=== PATIENT | female | born 1935 | race Caucasian/White ===

== ENCOUNTER → 2023-08-21 | Outpatient (CLI) | payer MEDICARE, BC, SELFPAY | END | disposition home or self-care (01) | LOC: LABSPEC 15:44 | PROVIDERS: PCP Family Medicine; Referring Provider Otolaryngology Otolaryngology/Facial Plastic Surgery; Visit Provider Otolaryngology Otolaryngology/Facial Plastic Surgery | DX: J02.9 Acute pharyngitis, unspecified (principal) | CPT/HCPCS: 87070; 87077; 87186 ==

== ENCOUNTER 2025-03-20 11:31 | Emergency (ER) | payer MEDICARE, BC, SELFPAY ==
[2025-03-20 11:31] VITALS: BP 105/64; PULSE 46; RESP 18; TEMP 36.6; O2SAT 96
--- NOTE | 2025-03-20 11:43 | RAD_ITS ---
PROCEDURE: CHEST PA AND LATERAL 03/20/2025 REASON FOR EXAM: COUGH Weakness and confusion. TECHNIQUE: CHEST PA AND LATERAL COMPARISON: None FINDINGS: Hardware: EKG electrodes are seen. Heart: Cardiomegaly. Mediastinum: The mediastinal contour is unremarkable. Lungs: Hyperinflation. Increased interstitial markings in the right lung. This may represent atypical mild CHF. Follow-up recommended. Bones: Dextroconvex scoliosis. Osteopenia of the thoracic vertebrae with a proximally 50% loss of height of the mid dorsal vertebrae. RAD/Chest PA and Lateral IMPRESSION: Hyperinflation. Increased interstitial markings in the right lung. This may represent atypical CHF. Follow-up recommended. [facility]
--- NOTE | 2025-03-20 11:45 | EDS_ITS ---
HPI <KANA Beltran - Last Filed: 03/20/25 16:03> History of Present Illness Chief Complaint: Weakness Narrative Narrative: 89-year-old female with past medical history of A-fib on Eliquis presents with 5-day history of fatigue and upper respiratory symptoms. She states she had a very congested cough but it was not productive. Her cough is lessened but she still very tired and is sleeping a lot throughout the day. She has had decreased appetite and oral intake. She denies nausea, vomiting, abdominal pain or diarrhea. No chest pain or shortness of breath. No fever or chills. She lives alone and although tired has been able to get up and get dressed and use the restroom etc. She is brought in by her family for evaluation. Her primary care called in cefuroxime over the phone a few days ago but it has not improved her symptoms. [facility] <KANA Beltran - Last Filed: 03/20/25 16:03> [facility] Medical History (Updated 03/20/25 @ 13:24 by Kimberly Evans) Trigeminal neuralgia HTN (hypertension) PAF (paroxysmal atrial fibrillation) Home Medications ?Medication ?Instructions ?Recorded ?Last Taken ?Type apixaban 5 mg tablet (Eliquis) 5 mg PO BID 03/20/25 History cefuroxime axetil 250 mg tablet 250 mg PO BID 03/20/25 03/20/25 History doxycycline hyclate 100 mg tablet 100 mg PO BID 7 days #14 tabs 03/20/25 Unknown Rx furosemide 20 mg tablet 20 mg PO DAILY 03/20/2503/02 History gabapentin 300 mg capsule 300 mg PO Q4H PRN 03/20/25 0 03/20/25 History guaifenesin 600 mg tablet, 1,200 mg PO BID PRN congest ion 03/20/25 03/20/25 History extended release 12 hr (Mucinex) latanoprost 0.005 % eye drops 1 drp ophthalmic (eye) Q HS 03/20/25 03/19/25 History lisinopril 2.5 mg tablet 2.5 mg PO DAILY 03/20/25 History magnesium oxide 400 mg (241.3 mg 400 mg PO DAILY 03/2003/19/25 History magnesium) tablet metoprolol tartrate 25 mg tablet 25 mg PO BID 03/20/25 03/20/25 History spironolactone 25 mg tablet 12.5 mg PO DAILY 03/20/25 03/19/25 History Allergy/AdvReac Type Severity Reaction Status Date / Time codeine Allergy Other Verified 03/20/25 11:33 Sulfa (Sulfonamide Allergy Vomiting Verified 03/20/25 11:33 Antibiotics) Social History Smoking Status: Never smoker ROS <KANA Beltran - Last Filed: 03/20/25 16:03> ROS ED ROS Narrative Constitutional: Positive for malaise. Negative for fever, chills. CVS: Negative for palpitations, chest pain, syncope. Respiratory: Positive for cough. Negative for shortness of breath. GI: Negative for abdominal pain, nausea, vomiting, diarrhea. : Negative for dysuria, hematuria or frequency. EXAM <KANA Beltran - Last Filed: 03/20/25 16:03> Physical Exam Narrative Exam Narrative: CONST: Patient sitting in no acute distress. EYES: Normal inspection. ENT: Normal inspection, dry mucous membranes. NECK: Normal inspection. RESP: No respiratory distress, CTAB. CVS: Irregular rate and rhythm, no murmur, no gallop. ABD: Soft and nontender, no guarding or rebound, nondistended. SKIN: Color normal, no rash, warm, dry, intact. EXTREMITIES: Normal appearance, no pedal edema. NEURO: Alert and answering questions appropriately. PSYCH: Normal affect. Const Vital Signs: 03/20/25 11:31 03/20/25 12:09 03/20/25 12:33 Temperature 97.9 F 97.8 F Temperature Source Oral Oral Pulse Rate 46 L 89 Respiratory Rate 18 18 Respiratory Effort Normal Non-Labored Respiratory Pattern Normal Blood Pressure 105/64 126/62 H Blood Pressure Mean 77 83 Pulse Ox 96 97 Oxygen Delivery Method Room Air Room Air 03/20/25 13:00 Temperature 98.2 F Temperature Source Pulse Rate 82 Respiratory Rate 14 Respiratory Effort Respiratory Pattern Blood Pressure 128/74 H Blood Pressure Mean 92 Pulse Ox 97 Oxygen Delivery Method <Dr. Jrodan Prabhakar MD - Last Filed: 03/20/25 16:13> Physical Exam Const Vital Signs: 03/20/25 11:31 03/20/25 12:09 03/20/25 12:33 Temperature 97.9 F 97.8 F Temperature Source Oral Oral Pulse Rate 46 L 89 Respiratory Rate 18 18 Respiratory Effort Normal Non-Labored Respiratory Pattern Normal Blood Pressure 105/64 126/62 H Blood Pressure Mean 77 83 Pulse Ox 96 97 Oxygen Delivery Method Room Air Room Air 03/20/25 13:00 Temperature 98.2 F Temperature Source Pulse Rate 82 Respiratory Rate 14 Respiratory Effort Respiratory Pattern Blood Pressure 128/74 H Blood Pressure Mean 92 Pulse Ox 97 Oxygen Delivery Method [facility] <KANA Beltran - Last Filed: 03/20/25 16:03> [facility] Narrative Medical decision making narrative: History gathered from: Patient and her family Differential includes but not limited to viral URI, pneumonia, electrolyte luisa angement, SHIRLEY, UTI 89-year-old female presents with 5-day history of fatigue, generalized weakness and upper respiratory symptoms. No chest pain or shortness of breath. She appears well and nontoxic and is afebrile and hemodynamically stable. She has slightly dry mucous membranes with an otherwise benign exam. She is fully alert and oriented. CBC and BMP are unremarkable. UA has signs of possible UTI although does have 5-10 epithelial cells. She has no urinary symptoms and it was sent for culture. Chest x-ray shows increased interstitial markings in the right lung which was read as possible atypical CHF; however, on my review it looks similar to her chest x-ray in 2016. I discussed with the patient the differential includes a viral upper respiratory infection or atypical pneumonia. I prescribed doxycycline and recommended she stop the cefuroxime from primary care. She is comfortable going home and was given return precautions and discharged in stable condition. Lab Data Attestation: I reviewed the patient's lab results. Labs: Laboratory Results - last 24 hr 03/20/25 03/20/25 11:30 12:30 WBC 7.5 RBC 4.26 Hgb 12.8 Hct 38.6 MCV 90.6 MCH 30.0 MCHC 33.2 RDW Std Deviation 47.7 H RDW Coeff of [place] 14.4 Plt Count 185 MPV 9.2 Immature Gran % (Auto) 0.500 Neut % (Auto) 70.9 H Lymph % (Auto) 21.0 [place] % (Auto) 6.7 Eos % (Auto) 0.8 Baso % (Auto) 0.1 Absolute Neuts (auto) 5.3 Absolute Lymphs (auto) 1.57 Nucleated RBC % 0 Sodium 139 Potassium 3.8 Chloride 103 Carbon Dioxide 24.3 Anion Gap 12 BUN 19 Creatinine 0.80 Est GFR (MDRD) Non-Af 71 BUN/Creatinine Ratio 24.0 H Glucose 114 H Calcium 9.2 Urine Color Yellow Urine Clarity Sl. Cloudy Urine pH 6.0 Ur Specific [place] 1.015 Urine Protein 15 H Urine Glucose (UA) Normal Urine Ketones Negative Urine Occult Blood 10 H Urine Nitrite Negative Urine Bilirubin Negative Urine Urobilinogen Normal Ur Leukocyte Esterase 100 H Urine RBC 0-5 SEEN Urine WBC 5-10 SEEN Ur Squamous Epith Cells 5-10 SEEN Urine Bacteria 2+ Urine Mucus 1+ Radiography Diagnostic Testing: Clinical Impression(s) from Imaging Studies Chest X-Ray 03/20/25 11:43 IMPRESSION: Hyperinflation. Increased interstitial markings in the right lung. This may represent atypical CHF. Follow-up recommended. Reading Location: [place] [address] ED attending interpretation of 2 view chest x-ray shows increased right lung markings, looks similar to 2016. EKG Initial EKG: Attestation: I personally reviewed and interpreted this EKG as follows: Interpretation: No Acute Injury Pattern and Atrial Fibrillation Comments: Atrial fibrillation [address] changes <Dr. Jordan Prabhakar MD - Last Filed: 03/20/25 16:13> [facility] Lab Data Labs: Laboratory Results - last 24 hr 03/20/25 03/20/25 11:30 12:30 WBC 7.5 RBC 4.26 Hgb 12.8 Hct 38.6 MCV 90.6 MCH 30.0 MCHC 33.2 RDW Std Deviation 47.7 H RDW Coeff of [place] 14.4 Plt Count 185 MPV 9.2 Immature Gran % (Auto) 0.500 Neut % (Auto) 70.9 H Lymph % (Auto) 21.0 [place] % (Auto) 6.7 Eos % (Auto) 0.8 Baso % (Auto) 0.1 Absolute Neuts (auto) 5.3 Absolute Lymphs (auto) 1.57 Nucleated RBC % 0 Sodium 139 Potassium 3.8 Chloride 103 Carbon Dioxide 24.3 Anion Gap 12 BUN 19 Creatinine 0.80 Est GFR (MDRD) Non-Af 71 BUN/Creatinine Ratio 24.0 H Glucose 114 H Calcium 9.2 Urine Color Yellow Urine Clarity Sl. Cloudy Urine pH 6.0 Ur Specific [place] 1.015 Urine Protein 15 H Urine Glucose (UA) Normal Urine Ketones Negative Urine Occult Blood 10 H Urine Nitrite Negative Urine Bilirubin Negative Urine Urobilinogen Normal Ur Leukocyte Esterase 100 H Urine RBC 0-5 SEEN Urine WBC 5-10 SEEN Ur Squamous Epith Cells 5-10 SEEN Urine Bacteria 2+ Urine Mucus 1+ Radiography Diagnostic Testing: Clinical Impression(s) from Imaging Studies Chest X-Ray 03/20/25 11:43 IMPRESSION: Hyperinflation. Increased interstitial markings in the right lung. This may represent atypical CHF. Follow-up recommended. Reading Location: [place] [address] Treatment and Re-Evaluation Comments:: I have personally performed a face to face assessment of the patient and have reviewed the DANNIE Note. I performed a substantive portion of the visit including all aspects of the following. My church findings include: History is cough and some dyspnea with exertion over the past 4 or 5 days, malaise/fatigue. Has been taking cefuroxime for 3 days with no improvement. Came to the ER because her doctor is no longer available for her to follow-up with, she is getting a new PCP and is in between physicians at this time. Exam is well-appearing in no distress. [place] in full sentences. She did have some Rales that cleared after she coughed, sound a little diminished in the right base afterwards, but otherwise clear. Heart is irregularly irregular without tachycardia. No pedal edema or calf tenderness or signs of cellulitis. Medical Decison Making labs, chest x-ray, EKG obtained. EKG shows chronic A- fib. It is rate controlled. Chest x-ray 2 views of my interpretation shows no acute pneumonia, but some increased interstitial markings in the right base. Radiology in agreement. We are going to change her antibiotic, we offered admission she declines and wants to go home, we discussed reasons to return. Other additions or changes: [None] Discharge Plan Triage Chief Complaint: Weakness ED Midlevel Provider: Erendira Rao ED Provider: Jordan Prabhakar Dx/Rx/DC Orders Clinical Impression: Upper respiratory infection, Acute UTI, Generalized weakness Instructions: Adult Self-Care for Colds Prescriptions: New doxycycline hyclate 100 mg tablet 100 mg PO BID 7 Days Qty: 14 0RF No Action latanoprost 0.005 % drops 1 drp ophthalmic (eye) QHS cefuroxime axetil 250 mg tablet 250 mg PO BID magnesium oxide 400 mg (241.3 mg magnesium) tablet 400 mg PO DAILY gabapentin 300 mg capsule 300 mg PO Q4H PRN furosemide 20 mg tablet 20 mg PO DAILY lisinopril 2.5 mg tablet 2.5 mg PO DAILY metoprolol tartrate 25 mg tablet 25 mg PO BID Eliquis 5 mg tablet 5 mg PO BID spironolactone 25 mg tablet 12.5 mg PO DAILY guaifenesin [Mucinex] 600 mg tablet extended release 12hr 1,200 mg PO BID PRN (Reason: congestion) Primary Care Provider: Britton Bravo Referrals: Reno Winston MD [Non-Staff] - Activity Restrictions/Additional Instructions: You may have a viral upper respiratory infection. However, to cover atypical lung infections I prescribed doxycycline. Stop taking the cefuroxime you have at home and start taking the doxycycline instead. You also have bacteria in your urine which could be a UTI. Rest, drink plenty of fluids, take Tylenol as needed for fever or pain. Follow-up with your primary care doctor or return to the ER if symptoms worsen. Print Language: Romanian Disposition Disposition: Home, Self Care Discharge Date/Time: 03/20/25 13:25
[2025-03-20 12:00] LABS: Absolute Lymphocyte Count 1.57 X10^3/uL (0.83-4.51); Absolute Neutrophil Count 5.3 X10^3/uL (2.0-7.7); Basophil# 0.01 X10^3/uL; Basophil% 0.1 % (0-1); Eosinophil# 0.06 X10^3/uL; Eosinophils% 0.8 % (0-5); Hematocrit 38.6 % (37-47); Hemoglobin 12.8 g/dL (12.0-15.0); Lymphocyte # 1.57 X10^3/ul (0.83-4.51); Mean Corp Hgb Conc 33.2 g/dL (32-36); Mean Corpuscular Volume 90.6 fL (81-99); Mean Platelet Vol. 9.2 fl (6.2-12.0); Monocyte% 6.7 % (0-10); NRBC Flagged by Analyzer 0 % (0-5); Neutrophil # 5.28 X10^3/uL (2.7-7.7); Neutrophil % 70.9 % (47-70); Platelet Count 185 K/mm3 (150-450); RBC Distribution Width CV 14.4 % (11.6-14.6); RBC Distribution Width SD 47.7 fl (35.1-43.9); Red Blood Count 4.26 M/mm3 (4.2-5.4); White Blood Count 7.5 K/mm3 (4.4-11.0)
[2025-03-20] MEDS: 0.9% Normal Saline (1000mL) 1,000 ML 999 ML IV (12:07)
[2025-03-20 12:22] LABS: Anion Gap 12 (5-15); BUN 19 mg/dL (4-19); Calcium,Total 9.2 mg/dL (7.6-11.0); Carbon Dioxide 24.3 mmol/L (21.0-32.0); Chloride 103 mmol/L (98-108); EST Glomerular Filtration Rate 71 (>60); Glucose 114 mg/dL (70-99); Potassium 3.8 mmol/L (3.3-5.1); Sodium Level 139 mmol/L (133-145)
--- NOTE | 2025-03-20 12:32 | EKG12_ITS ---
Test Reason : Blood Pressure : */* mmHG Vent. Rate : 89 BPM Atrial Rate : * BPM P-R Int : * ms QRS Dur : 86 ms QT Int : 348 ms P-R-T Axes : * -24 -63 degrees QTcB Int : 423 ms Atrial fibrillation Low voltage QRS Cannot rule out Anteroseptal infarct , age undetermined Abnormal ECG Confirmed by Sly Lopez ([id number]), web content editor LEATHA OGLESBY ([id number]) on 03/25/2025 11:30:59 AM Referred By: Jordan Prabhakar Confirmed By: Sly Lopez
[2025-03-20 12:33] VITALS: BP 126/62; PULSE 89; RESP 18; TEMP 36.6; O2SAT 97
[2025-03-20 12:38] LABS: Color, Urine Yellow (Yellow); Glucose, Dipstick Normal (Normal); Ketone-Dipstick Negative (Negative); Leukocyte Esterase-Dipstick 100 /ul (Negative); Nitrite-Dipstick Negative (Negative); Occult Blood-Urine 10 /ul (Negative); Protein-Dipstick 15 mg/dl (Negative); Specific Gravity, Urine 1.015 (1.002-1.030); Urine Bilirubin Dipstick Negative (Negative); Urine Clarity Sl. Cloudy (Clear); Urine Urobilinogen Normal (Normal)
[2025-03-20 12:40] VITALS: BMI 22.8
[2025-03-20 12:43] LABS: Bacteria 2+ /hpf (None Seen); Mucous, Urine 1+ /hpf (<or=2+); Red Blood Cells-Urine 0-5 SEEN /hpf (0-5); Squamous Epithelial Cells - UA 5-10 SEEN /hpf (5-10); White Blood Cells 5-10 SEEN /hpf (0-5)
--- OUTSIDE RECORDS SUMMARY | 2025-03-20 12:48 | XMS RPT_ITS | CCD ---
Author Organization [facility] Care Team Providers Care Evp Business Development Name Role Phone TORI, VÍCTOR E Unavailable Unavailable TORI, VÍCTOR E Unavailable Unavailable TORI, VÍCTOR E Unavailable Unavailable RENO BAINS Unavailable Unavailable TORI, VÍCTOR Unavailable Unavailable RENO BAINS Unavailable Unavailable TORI, VÍCTOR Unavailable Unavailable RENO BAINS Unavailable Unavailable TORI, VÍCTOR Unavailable Unavailable TORI, VÍCTOR Unavailable Unavailable RENO BAINS Unavailable Unavailable ROSA ABREU Unavailable Unavailable IMCA Unavailable Unavailable RENO BAINS Unavailable Unavailable Ngoc, [place] S Unavailable Reza Barros MD Unavailable Reza Barros MD Primary Care Provider No, Referral Unavailable Unavailable Luis Barron MD Unavailable Ngoc, Melvin S Unavailable Reza Barros MD Unavailable Reza Barros MD Primary Care Provider Luis Barron MD Unavailable Ngoc, [place] S Unavailable Unavailable Primary Care Provider Unavailabl e Ngoc, Melvin S Unavailable Reza Barros MD Unavailable Reza Barros MD Primary Care Provider No, Referral Unavailable Unavailable Luis Barron MD Unavailable Ngoc, Melvin S Unavailable No, Referral Unavailable Unavailable Ngoc RAHMAN Melvin S Unavailable Barron MD, Luis Unavailable Cedrick Espana Referring Unavailable Cedrick Espana Attending Unavailable Catrachito, Reno Primary Care Unavailable Catrachito, Reno Primary Care Unavailable Latouf, Butros Referring Unavailable Latouf, Butros Attending Unavailable Latouf Reza RAHMAN Primary Care Provider LATOUF, BUTFRANCE MD Admitting Unavailable LATOUF, BUTROS MD Attending Unavailable LATOUF, BUTROS MD Primary Care Unavailable LATOUF, BUTROS MD Admitting Unavailable LATOUF, BUTROS MD Attending Unavailable LATOUF, BUTROS Primary Care Unavailable LATOUF, BUTFRANCE RAHMAN Admitting Unavailable LATOUF, BUTROS Attending Unavailable LATOUF, BUTFRANCE RAHMAN Primary Care Unavailable JOSESITO GARHAM Consulting Unavailable PROVIDER, UNKNOWN Consulting Unavailable PROVIDER, UNKNOWN Consulting Unavailable PROVIDER, UNKNOWN Consulting Unavailable LATOUF, REZA RAHMAN Attending Unavailable LATOUF, BUTFRANCE RAHMAN Primary Care Unavailable SANTOS JOSESITO Zenobia Consulting Unavailable LATOUF, BUTFRANCE RAHMAN Admitting Unavailable PROVIDER, UNKNOWN Consulting Unavailable PROVIDER, UNKNOWN Consulting Unavailable PROVIDER, UNKNOWN Consulting Unavailable LATOUF, BUTROS Primary Care Unavailable LUIS BARRON Attending Unavailable LATOUF, BUTROS Primary Care Unavailable LATOUF, BUTROS Primary Care Unavailable LATOUF, BUTROS Referring Unavailable LATOUF, BUTROS Primary Care Unavailable JOSESITO LORA Attending Unavailable LOW WHITE Referring Unavailable LATOUF, BUTROS Primary Care Unavailable LOW WHITE Referring Unavailable LATOUF, BUTROS Primary Care Unavailable LATOUF, BUTROS Primary Care Unavailable Allergies Allergy Classification Reported Allergen(s) Allergy Type Date of Onset Reaction(s) Facility Opioid Agonists (1 source) Codeine Drug Allergy 4 Other: See Comments [facility] Sulfonamides (antibiotic) (1 source) Sulfonamides (Antibiotic) Drug Allergy 4 Other: See Comments [facility] (20 sources) codeine; Translations: [CODEINE] Drug Allergy 4 Other: See Comments [facility] Repository (20 sources) Sulfonamides (Antibiotic); Translations: [SULFA (SULFONAMIDE ANTIBIOTICS)] Propensity to adverse reactions to drug (disorder) 4 Other: See Comments [facility] Repository (1 source) Sulfonamides (Antibiotic) Drug allergy (disorder) [facility] Repository Medications Current Medications Medication Drug Class(es) Dates Sig (Normalized) Sig (Original) acetaminophen 325 mg oral tablet (19 sources) acetaminophen (TYLENOL ORAL) Take 325 mg by mouth as needed. Active Comment on above: Take 325 mg by mouth as needed. amiodarone hydrochloride 200 mg oral tablet (1 source) Antiarrhythmic Start: 10-27-2015 take 200 mg by mouth once daily Amiodarone Active 200 MG PO DAILY October 27, 2015 12:00am ampicillin 500 mg oral capsule (1 source) Penicillin-class Antibacterial Start: 11-29-2023 End: 12-06-2023 take 1 capsule by mouth three times daily ampicillin (PRINCIPEN) 500 mg capsule Indications: Enterococcus urinary tract infection Take 1 capsule by mouth three times a day for 7 days. 21 capsule 0 11/29/2023 12/06/2023 Active Comment on above: Take 1 capsule by mo [facility] three times a day for 7 days. apixaban 5 mg oral tablet (19 sources) Factor Xa Inhibitor Start: 07-29-2021 take 1 tablet by mouth twice daily apixaban (ELIQUIS) 5 mg tab(s) Take 1 tablet by mouth twice daily. 60 tablet 11 07/29/2021 Active Comment on above: Take 1 tablet by [facility] twice daily. carvedilol 6.25 mg oral tablet (1 source) alpha-Adrenergic Nancy, beta-Adrenergic Nancy Start: 10-27-2015 take 6.25 mg by mouth twice daily Carvedilol Active 6.25 MG PO TWICE A DAY October 27, 2015 12:00am cephalexin 500 mg oral capsule (5 sources) Cephalosporin Antibacterial Start: 06-26-2023 End: 07-03-2023 take 1 capsule by mouth three times daily cephALEXin (KEFLEX) 500 mg capsule Take 1 capsule by mouth three times daily for 7 days. 21 capsule 0 06/26/2023 07/03/2023 Active Start: 12-08-2021 End: 03-30-2022 take 1 capsule by mouth four times daily cephALEXin (KEFLEX) 500 mg capsule Take 1 capsule by mouth four times daily. 28 capsule 0 12/08/2021 03/30/2022 Discontinued Comment on above: Take 1 capsule by mo [facility] four times daily. Take 1 capsule by mo [facility] three times daily for 7 days. ciprofloxacin 500 mg oral tablet (1 source) Quinolone Antimicrobial Start: 01-28-20 End: 02-04-20 take 1 tablet by mouth twice daily ciprofloxacin HCl (CIPRO) 500 mg tablet Take 1 tablet by mouth twice daily for 7 days. 14 tablet 0 01/27/2022 02/03/2022 Active Comment on above: Take 1 tablet by juliet th twice daily for 7 days. furosemide 20 mg oral tablet (19 sources) Loop Diuretic Start: 07-29-20 21 take 1 tablet by mouth once daily furosemide (LASIX) 20 mg tablet Take 1 tablet by mouth once daily. 30 tablet 11 07/29/2021 Active Comment on above: Take 1 tablet by juliet th once daily. gabapentin 300 mg oral capsule (20 sources) Anti-epileptic Agent Start: 01-20-20 End: 01-20-20 23 take 2 capsules by mouth four times daily gabapentin (NEURONTIN) 300 mg capsule Take 2 capsules by mouth four times daily. 240 capsule 11 01/19/2022 Active Start: 10-27-2015 End: 09-09-2016 gabapentin (NEURONTIN) 300 M G capsule Indications: Trigeminal neuralgia TAKE 6 CAPSULES EVERY DAY 180 capsule 11 10/27/2015 09/09/2016 Discontinued (Reorder (Suppress CancelRx Message to Pharmacy)) take 4 capsules by m outh once daily gabapentin (NEURONTIN) 300 mg capsule Take 300 mg by mouth four times daily. 4-6x per day 0 Active Comment on above: Take 300 mg by mouth four times daily. 4-6x per day Take 2 capsules by m outh four times daily. iv contrast (will be provided with radiology test) (1 source) Start: 024 End: 024 inject 1 dose intravenously once iv contrast (will be provided with radiology test) MRI Brain Inject, intravenously, once for 1 dose.No IV access, insert saline lock prior to beginning of sedation, infusion, injection of imaging exam.Discontinue saline lock post exam. If Pt. has a central line or IVAD, may access for administration according to line specific nursing protocol.Once exam is complete flush line and de-access according to line specific nursing protocol in the MR contrast administration guidelines link 1 Each 0 12/19/2023 12/20/2023 Active Comment on above: MRI Brain Inject, in travenously, once for 1 dose.No IV access, insert saline lock prior to beginning of sedation, infusion, injection of imaging exam.Discontinue saline lock post exam. If Pt. has a central line or IVAD, may access for administration according to line specific nursing protocol.Once exam is complete flush line and de-access according to line specific nursing protocol in the MR contrast administration guidelines link latanoprost 0.05 mg/ml ophthalmic solution (19 sources) Prostaglandin Analog Start: 016 take 1 drop(s) into the eye(s) once daily latanoprost (XALATAN) 0.005 % ophthalmic solution Use 1 Drop in both eyes once daily. 1 Bottle 3 11/26/2015 Active Start: 11-26-2015 take 1 drop(s) into the eye(s) once daily latanoprost (XALATAN) 0.005 % ophthalmic solution Use 1 Drop in both eyes once daily. 1 Bottle 3 11/26/2015 Active Comment on above: Use 1 Drop in both e yes once daily. lisinopril 20 mg oral tablet (20 sources) Angiotensin Converting Enzyme Inhibitor Start: 10-27-2015 take 20 mg by mouth once daily Lisinopril Active 20 MG PO DAILY October 27, 2015 12:00am Start: 10-27-2015 take 10 mg by mouth once daily Lisinopril Active 10 MG PO DAILY October 27, 2015 12:00am take 1 tablet by juleit th once daily lisinopril 2.5 mg tablet Take 2.5 mg by mouth once daily. Active End: 06-16-2022 take 1 tablet by mouth once daily lisinopril (ZESTRIL, PRINIVIL) 10 mg tablet Take 10 mg by mouth once daily. 0 06/16/2022 Discontinued (Discontinued by another Health Care Provider) Comment on above: Take 2.5 mg by mouth once daily. Take 10 mg by mouth once daily. magnesium oxide 400 mg oral tablet (19 sources) Start: 04-12-20 18 take 1 tablet by mouth once daily magnesium oxide (MAG-OX) 400 mg tablet TAKE ONE TABLET BY MOUTH DAILY 90 tablet 3 04/12/2018 Active Comment on above: TAKE ONE TABLET BY M OUTH DAILY metoprolol tartrate 25 mg oral tablet (20 sources) beta-Adrenergic Nancy Start: 07-29-20 21 End: 06-16-20 take 1 tablet by mouth twice daily metoprolol tartrate, short acting, (LOPRESSOR) 25 mg tablet Take 1 tablet by mouth twice daily. 60 tablet 11 06/16/2022 Active Comment on above: Take 1 tablet by [facility] twice daily. nitrofurantoin, macrocrystals 25 mg / nitrofurantoin, monohydrate 75 mg oral capsule (20 sources) Nitrofuran Antibacterial Start: 04-18-20 take 1 capsule by mouth every twenty-four hours as needed nitrofurantoin monohydrate and macrocrystal (MACROBID) 100 mg capsule Take 1 capsule by mouth at bedtime as needed. 90 capsule 3 04/18/2023 Active Start: 04-06-2023 End: 04-13-2023 take 1 capsule by mouth twice daily nitrofurantoin monohydrate and macrocrystal (MACROBID) 100 mg capsule Take 1 capsule by mouth twice daily for 7 days. 14 capsule 0 04/06/2023 04/13/2023 Active Start: 03-16-2021 End: 04-18-2023 take 1 capsule by mouth once daily at bedtime nitrofurantoin monohydrate and macrocrystal (MACROBID) 100 mg capsule Take 1 capsule by mouth once daily at bedtime 90 capsule 0 07/01/2022 04/18/2023 Discontinued Start: 10-27-2015 take 100 mg by mouth every twelve hours Nitrofurantoin Monohyd/M-Cryst Active 100 MG PO EVERY 12 HOURS October 27, 2015 12:00am Comment on above: Take 1 capsule by [facility] daily at bedtime. Take 1 capsule by [facility] once daily at bedtime Take 1 capsule by [facility] twice daily for 7 days. Take 1 capsule by [facility] at bedtime as needed. perflutren lipid microspheres 1.3 mL in NaCl (PF) 0.9% 10 mL injection (DEFINITY) (7 sources) Start: 03-31-20 End: 06-30-20 perflutren lipid microspheres 1.3 mL in NaCl (PF) 0.9% 10 mL injection (DEFINITY) 125 ml sodium chloride 9 mg/ml prefilled syringe (7 sources) Start: 03-31-20 End: 06-30-20 sodium chloride 0.9 % (flush) 10 mL (BD POSIFLUSH) spironolactone 25 mg oral tablet (20 sources) Aldosterone Antagonist Start: 07-29-20 take 0.5 tablet by mouth once daily spironolactone (ALDACTONE) 25 mg tablet Take 0.5 tablets by mouth once daily. Please give 12.5 mg tablets PLEASE if you have them. 30 tablet 11 07/29/2021 Active End: 04-24-2024 take 1 tablet by mouth once daily spironolactone (ALDACTONE) 12.5 mg tab Take 12.5 mg by mouth once daily. 0 04/24/2024 Discontinued (Dosage adjustment) take 1 tablet by juliet th once daily spironolactone (ALDACTONE) 12.5 mg tab Take 12.5 mg by mouth once daily. 0 Active Comment on above: Take 12.5 mg by mout h once daily. Take 0.5 tablets by mouth once daily. Please give 12.5 mg tablets PLEASE if you have them. warfarin sodium 3 mg oral tablet (2 sources) Vitamin K Antagonist Start: 10-27-2015 take 2 mg by mouth at bedtime Warfarin Active 2 MG PO AT BEDTIME October 27, 2015 12:00am Start: 10-27-2015 take 3 mg by mouth at bedtime Warfarin Active 3 MG PO AT BEDTIME October 27, 2015 12:00am Completed/Discontinued Medications Medication Drug Class(es) Dates Sig (Normalized) Sig (Original) baclofen 10 mg oral tablet (5 sources) gamma-Aminobutyri c Acid-ergic Agonist Start: 01-19-2022 End: 06-16-2022 take 1 tablet by mouth every eight hours as needed baclofen (LIORESAL) 10 mg tablet Take 1 tablet by mouth three times daily as needed (trigeminal neuralgia pain). 60 tablet 11 01/19/2022 06/16/2022 Discontinued (Discontinued by another Health Care Provider) Comment on above: Take 1 tablet by juliet th three times daily as needed (trigeminal neuralgia pain). Problems Active Problems Problem Classification Problem Date Documented Da te Episodic/Chronic Cardiac dysrhythmias (20 sources) Chronic atrial fibrillation; Translations: [Chronic atrial fibrillation] Onset: 08-12-2005 08-12-2005 Chronic Congestive heart failure; nonhypertensive (10 sources) Chronic diastolic (congestive) heart failure; Translations: [Unspecified diastolic (congestive) heart failure] Onset: 11-23-2015 Resolved: 08-01-2016 09-27-2021 Chronic Diabetes mellitus without complication (3 sources) Hyperglycemia, unspecified; Translations: [Hyperglycemia, unspecified] Onset: 12-14-2023 Episodic Disorders of lipid metabolism (19 sources) Hyperlipidemia; Translations: [Hyperlipidemia, unspecified] Onset: 04-16-2015 04-16-2015 Chronic Essential hypertension (20 sources) Essential hypertension; Translations: [Essential (primary) hypertension] Onset: 01-03-2007 09-27-2021 Chronic Genitourinary symptoms and ill-defined conditions (2 sources) Dysuria; Translations: [Dysuria] Episodic Heart valve disorders (20 sources) Nonrheumatic tricuspid (valve) insufficiency; Translations: [Tricuspid incompetence, non-rheumatic ] Onset: 09-01-2017 04-01-2020 Chronic Nutritional deficiencies (4 sources) Vitamin D deficiency, unspecified; Translations: [Vitamin D deficiency, unspecified] Onset: 12-14-2023 Chronic Occlusion or stenosis of precerebral arteries (2 sources) Occlusion and stenosis of unspecified carotid artery; Translations: [Occlusion and stenosis of unspecified carotid artery] Onset: 07-24-2024 Chronic Other aftercare (1 source) Drug therapy finding; Translations: [logistics tech (current) use of anticoagulants] 10-27-2015 Episodic Other and ill-defined heart disease (19 sources) Cardiomegaly; Translations: [Cardiomegaly] Onset: 08-12-2005 08-12-2005 Chronic Other and ill-defined heart disease (20 sources) Left atrial enlargement; Translations: [Cardiomegaly] Onset: 04-01-2020 04-01-2020 Chronic Other and ill-defined heart disease (4 sources) Right atrial enlargement; Translations: [Cardiomegaly] Onset: 04-25-2024 04-25-2024 Chronic Other and ill-defined heart disease (2 sources) Cardiomegaly; Translations: [Left atrial enlargement] Onset: 04-01-2020 Chronic Other and unspecified benign neoplasm (20 sources) Intracranial meningioma; 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] Onset: 06-24-2019 06-24-2019 Chronic Other nervous system disorders (2 sources) Trigeminal neuralgia; Translations: [Trigeminal neuralgia] Onset: 12-14-2023 Episodic Other nutritional; endocrine; and metabolic disorders (2 sources) Hypomagnesemia; Translations: [Hypomagnesemia] Onset: 07-25-2024 Chronic Estela-; endo-; and myocarditis; cardiomyopathy (except that caused by tuberculosis or sexually transmitted disease) (19 sources) Cardiomyopathy; Translations: [Other cardiomyopathies] Onset: 08-01-2016 08-01-2016 Chronic Thyroid disorders (19 sources) Hyperthyroidism; Translations: [Thyrotoxicosis, unspecified without thyrotoxic crisis or storm] Onset: 11-25-2015 09-27-2021 Chronic Unclassified (1 source) Unknown / UNK(Unknown) Onset: 09-01-2017 Unclassified (20 sources) SUMMARY; Translations: [SUMMARY] Onset: 05-21-2012 06-18-2016 Unclassified (1 source) Permanent atrial fibrillation; Translations: [Permanent atrial fibrillation (HCC)] Onset: 09-27-2021 Past or Other Problems Problem Classification Problem Date Documented Date Episodic/Chronic Complication of device; implant or graft (19 sources) Catheter-associated urinary tract infection; Translations: [Infection and inflammatory reaction due to indwelling urethral catheter, initial encounter] Onset: 10-30-2015 10-30-2015 Episodic Fluid and electrolyte disorders (20 sources) Hyponatremia; Translations: [Hypo-osmolality and hyponatremia] Onset: 09-02-2013 06-15-2016 Episodic Malaise and fatigue (19 sources) Fatigue; Translations: [Other fatigue] Onset: 04-26-2019 04-26-2019 Episodic Other aftercare (19 sources) Anticoagulant control - finding; Translations: [logistics tech (current) use of anticoagulants] Onset: 04-01-2020 04-01-2020 Episodic Other aftercare (4 sources) Patient encounter status; Translations: [Encounter for therapeutic drug level monitoring] Onset: 05-21-2012 Resolved: 08-01-2016 09-27-2021 Episodic Other aftercare (4 sources) Anticoagulant effect; Translations: [MCC (current) use of anticoagulants] Onset: 05-21-2012 Resolved: 03-31-2021 09-27-2021 Episodic Other circulatory disease (19 sources) Low blood pressure; Translations: [Hypotension, unspecified] Onset: 06-15-2016 09-28-2021 Episodic Other nervous system disorders (20 sources) Trigeminal neuralgia; Translations: [Trigeminal neuralgia] Onset: 05-21-2012 09-27-2021 Episodic Other nervous system disorders (18 sources) Right trigeminal neuralgia; Translations: [Trigeminal neuralgia] Onset: 01-19-2022 01-19-2022 Episodic Other upper respiratory infections (1 source) Acute pharyngitis, unspecified; Translations: [Acute pharyngitis, unspecified] Onset: 08-25-2023 Episodic Residual codes; unclassified (19 sources) Bilateral lower limb edema; Translations: [Localized edema] Onset: 06-17-2016 09-28-2021 Episodic Residual codes; unclassified (2 sources) Other general symptoms and signs; Translations: [Other general symptoms] Onset: 04-24-2024 12-15-2023 Episodic Syncope (5 sources) Syncope and collapse; Translations: [Syncope and collapse] Onset: 04-25-2024 04-25-2024 Episodic Urinary tract infections (20 sources) Urinary tract infectious disease; Translations: [Urinary tract infection, site not specified] Onset: 06-16-2016 09-28-2021 Episodic Results Test Name Value Interpretation Reference Range Facility 25(OH)D3 [facility] 2024 25-hydroxyvitamin D3 [Mass/Vol] 67.8 ng/mL Normal 31.0-80.0 [facility] Comment on above: Order Comment: Lorin jaime Type: BLOOD SPECIMEN Ordering Facility: [facility] Address: [address] [place] [address] Result Comment: Clas sification of 25 OH Vitamin D status: Deficiency/Insufficiency: < or = 30 ng/ml. Sufficiency/Optimal Levels: 31-80 ng/mL Toxicity: > 100 ng/mL. Test performed by chemiluminescent immunoassay. Performed By: #### 1 989-3 #### [facility] CLIA [id number] [address] [place] [address] [place] CBC W Auto Differential pane l (Bld)on 03-10-2025 Basophils (Bld) [#/Vol] 10*3/uL Normal <0.11 [facility] Comment on above: Order Comment: Speci men Type: BLOOD SPECIMEN Ordering Facility: [facility] Address: [address] [place] [address] Performed By: #### 2 4323-8, #### [facility] CLIA [id number] [address] [place] [address] [place] Basophils/100 WBC (Bld) 0.2 % Normal [facility] Comment on above: Order Comment: Speci men Type: BLOOD SPECIMEN Ordering Facility: [facility] Address: [address] [place] [address] Performed By: #### 2 4328, #### [facility] CLIA [id number] [address] [place] [address] [place] Differential cell count method Nom (Bld) Auto Normal [facility] Comment on above: Order Comment: Speci men Type: BLOOD SPECIMEN Ordering Facility: [facility] Address: [address] [place] [address] Performed By: #### 2 4328, #### [facility] CLIA [id number] [address] [place] [address] [place] Eosinophils (Bld) [#/Vol] 0.13 10*3/uL Normal <0.46 [facility] Comment on above: Order Comment: Speci men Type: BLOOD SPECIMEN Ordering Facility: [facility] Address: [address] [place] [address] Performed By: #### 2 4328, #### [facility] CLIA [id number] [address] [place] [address] [place] Eosinophils/100 WBC (Bld) 2.5 % Normal [facility] Comment on above: Order Comment: Speci men Type: BLOOD SPECIMEN Ordering Facility: [facility] Address: [address] [place] [address] Performed By: #### 2 432-8, #### [facility] CLIA [id number] [address] [place] [address] [place] Erythrocyte distribution width (RBC) [Ratio] 14.6 % Normal 11.5-15.0 [facility] Comment on above: Order Comment: Speci men Type: BLOOD SPECIMEN Ordering Facility: [facility] Address: [address] [place] [address] Performed By: #### 2 4323-8, #### [facility] CLIA [id number] [address] [place] [address] [place] Hematocrit (Bld) [Volume fraction] 38.9 % Normal 36.0-46.0 [facility] Comment on above: Order Comment: Speci men Type: BLOOD SPECIMEN Ordering Facility: [facility] Address: [address] [place] [address] Performed By: #### 2 4323-8, #### [facility] CLIA [id number] [address] [place] [address] [place] Hemoglobin (Bld) [Mass/Vol] 12.7 g/dL Normal 11.5-15.5 [facility] Comment on above: Order Comment: Speci men Type: BLOOD SPECIMEN Ordering Facility: [facility] Address: [address] [place] [address] Performed By: #### 2 4323-8, #### [facility] CLIA [id number] [address] [place] [address] [place] Immature granulocytes (Bld) [#/Vol] 10*3/uL Normal <0.10 [facility] Comment on above: Order Comment: Speci men Type: BLOOD SPECIMEN Ordering Facility: [facility] Address: [address] [place] [address] Performed By: #### 2 4323-8, #### [facility] CLIA [id number] [address] [place] [address] [place] Immature granulocytes/100 WBC (Bld) 0.4 % Normal [facility] Comment on above: Order Comment: Speci men Type: BLOOD SPECIMEN Ordering Facility: [facility] Address: [address] [place] [address] Performed By: #### 2 4323-8, 10558-4 #### [facility] CLIA [id number] [address] [place] [address] [place] Lymphocytes (Bld) [#/Vol] 1.53 10*3/uL Normal 1.00-4.00 [facility] Comment on above: Order Comment: Speci men Type: BLOOD SPECIMEN Ordering Facility: [facility] Address: [address] [place] [address] Performed By: #### 2 4323-8, 27182-8 #### [facility] CLIA [id number] [address] [place] [address] [place] Lymphocytes/100 WBC (Bld) 28.9 % Normal [facility] Comment on above: Order Comment: Speci men Type: BLOOD SPECIMEN Ordering Facility: [facility] Address: [address] [place] [address] Performed By: #### 2 4323-8, 26938-5 #### [facility] CLIA [id number] [address] [place] [address] [place] MCH (RBC) [Entitic mass] 30.1 pg Normal 26.0-34.0 [facility] Comment on above: Order Comment: Speci men Type: BLOOD SPECIMEN Ordering Facility: [facility] Address: [address] [place] [address] Performed By: #### 2 4323-8, 63698-7 #### [facility] CLIA [id number] [address] [place] [address] [place] MCHC (RBC) [Mass/Vol] 32.6 g/dL Normal 30.5-36.0 [facility] Comment on above: Order Comment: Speci men Type: BLOOD SPECIMEN Ordering Facility: [facility] Address: [address] [place] [address] Performed By: #### 2 4323-8, 26201-3 #### [facility] CLIA [id number] [address] [place] [address] [place] MCV (RBC) [Entitic vol] 92.2 fL Normal 80.0-100.0 [facility] Comment on above: Order Comment: Speci men Type: BLOOD SPECIMEN Ordering Facility: [facility] Address: [address] [place] [address] Performed By: #### 2 4323-8, #### [facility] CLIA [id number] [address] [place] [address] [place] Monocytes (Bld) [#/Vol] 0.40 10*3/uL Normal <0.87 [facility] Comment on above: Order Comment: Speci men Type: BLOOD SPECIMEN Ordering Facility: [facility] Address: [address] [place] [address] Performed By: #### 2 4323-8, #### [facility] CLIA [id number] [address] [place] [address] [place] Monocytes/100 WBC (Bld) 7.5 % Normal [facility] Comment on above: Order Comment: Speci men Type: BLOOD SPECIMEN Ordering Facility: [facility] Address: [address] [place] [address] Performed By: #### 2 4323-8, #### [facility] CLIA [id number] [address] [place] [address] [place] Neutrophils (Bld) [#/Vol] 3.21 10*3/uL Normal 1.45-7.50 [facility] Comment on above: Order Comment: Speci men Type: BLOOD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 hypertension. Estimated right atrial pressure is 3 mmHg based on IVC assessment. LEFT ATRIUM The left atrial cavity is dilated. RIGHT ATRIUM The right atrial cavity is dilated. Inferior Vena Cava: The inferior vena cava appears normal measuring 1.8 cm. The vessel decreases greater than 50 percent with inspiration. MITRAL VALVE There is moderate (2+) holosystolic mitral valve regurgitation. There is mild thickening. Regurgitant orifice area (PISA) is 0.21 cm . TRICUSPID VALVE There is moderate (2+ - 3+) tricuspid valve regurgitation. There is mild thickening. The hepatic venous pattern showed normal systolic flow. AORTIC VALVE There is no aortic valve stenosis. There is trace aortic valve regurgitation. Tricuspid aortic valve. There is mild thickening. The peak gradient is 3 mmHg (peak velocity = 81.0 cm/s). PULMONIC VALVE The pulmonic valve was not seen or not interrogated. There is mild (1+ - 2+) pulmonic valve regurgitation. AORTA The visualized aorta is normal in size. Measurements - Sinus: 3.3 cm. Mid ascending aorta 3.2 cm. INTERATRIAL SEPTUM There is no evidence of intracardiac shunting as detected by Doppler. INTERVENTRICULAR SEPTUM There is no flow through the interventricular septum as detected by Doppler. PERICARDIUM There is no pericardial effusion. CONCLUSIONS: - Exam indication: H/o Afib - The left ventricle is normal in size. Left ventricular systolic function is normal. EF = 54 5% (2D 4-ch.) Beat to beat variability in ventricular contraction in the setting of Afib. - The right ventricle is normal in size. Right ventricular systolic function is normal. - The left atrial cavity is dilated. - The right atrial cavity is dilated. - There is moderate (2+) holosystolic mitral valve regurgitation. Regurgitant orifice area (PISA) is 0.21 cm . - There is moderate (2+ - 3+) tricuspid valve regurgitation. - Exam was compared with the prior echocardiographic exam performed on 03/31/2021. On direct comparison, the estimated RVSP is slightly higher today (prior: 23 mmHg). Moderate functional MR and TR again noted in the setting of AF and biatrial enlargement. * * * Final * * * [facility] ([facility] Medical Image : [id number] sSISUID Normal [facility] Culture, [place] 08-26-2023 CUT No beta-hemolytic st reptococcus isolated. Acinetobacter ursingii Amount Growth 1+ Acinetobacter ursingii: REACTION Ampicillin+Sulbac Islt SONDRA >=32 R Ciprofloxacin Islt SONDRA 0.5 S Gentamicin Islt SONDRA <=1 S Imipenem Islt SONDRA 0.5 S levoFLOXacin Islt SONDRA 1 S Pip+Tazo Islt SONDRA >=128 R Tobramycin Islt SONDRA <=1 S TMP SMX Islt SONDRA 80 R Normal [facility] Comment on above: Performed By: #### M 100.1000 #### [facility] [address] [place], [address] UA DIP, URINE (POC)on 2022 BILIRUBIN UA (POCT) Negative Negative [facility] CLARITY UA (POCT) Cloudy [facility] COLOR UA (POCT) Light yellow [facility] GLUCOSE UA (POCT) Negative Negative mg/dL [facility] HEMOGLOBIN/BLOOD UA (POCT) Negative Negative [facility] KETONE UA (POCT) Negative Negative mg/dL [facility] LEUKOCYTES UA (POCT) Small Abnormal Negative [facility] NITRITE UA (POCT) Negative Negative [facility] PH UA (POCT) 7.0 4.5 - 8.0 [facility] Protein Ql (U) Negative Negative mg/dL [facility] SPECIFIC GRAVITY UA (POCT) 1.020 1.005 - 1.030 [facility] UROBILINOGEN UA (POCT) 0.2 E.U./dL Normal E.U./dL [facility] XR KNEE 4V AP/PA BOTH+LAT/ME R LTon 07-26-2019 XR KNEE 4V AP/PA BOTH+LAT/ERIC LT * * *Final Report* * * DATE OF EXAM: Jul 26 2019 10:31AM LUX 5202 - XR KNEE 4V AP/PA BOTH+LAT/ERIC LT / PROCEDURE REASON: Pain * * * * Physician Interpretation * * * * Indication: Left knee pain Comparison: None AP, PA, lateral and merchant views of the left knee are obtained. An AP view of the right knee is included. There is generalized demineralization of the bones. There is no acute fracture or dislocation. There is bilateral medial compartment joint space narrowing which is more pronounced on the right than the left. There are bilateral costochondral calcifications. Impression: 1. No acute fracture or dislocation. 2. Degenerative disease of bilateral knees Product Demonstrator: PSCB Transcribe Date/Time: Jul 26 2019 10:55A Dictated by : MARJORIE DE LA CRUZ MD This examination was interpreted and the report reviewed and electronically signed by: MARJORIE DE LA CRUZ MD on Jul 26 2019 10:57AM EST [id number] [facility] 01-26-2018 [facility] Office Visit (AGCARDWST) Marybeth CHA ([id number]) 1935 FDate Time Provider Department01/26/18 3:30 PM VÍCTOR VALLE AGCARDWST During your visit today, we recorded the following information about you: Pulse Blood pressure Height 73/minute 124/81 1.727 Sam Valle MD 01/26/2018 4:43 PM SignedPERTINENT CARDIAC HISTORYAtrial fib - permanent, multiple c/version, multiple drug trials, rate controlHTNTricuspid insufficiency - moderateHyponatremiaAmiodarone thyrotoxicosisCHF - diastolicADHERENCE TO GUIDELINESACE-I or ARB for HF with prior LVEFANDlt;40 (NQF 0081) - N/AASA or Plavix for ASHD (NQF 0067) - N/ABeta nancy for ASHD with prior PA or prior LVEFANDlt;40 (NQF 0070) - N/ABeta nancy for HF with prior LVEFANDlt;40 (NQF 0083) - N/AACE-I or ARB for ASHD with DM or prior LVEFANDlt;40 (NQF 0066) - N/AStatin therapy for ASHD or FHL or DM - N/ABMI documented and plan if ANDgt;25 (NQF 0421) - lifestyle recommendation formTobacco use screening and referral (NQF 0028) - lifestyle recommendation formRecommendation for whole food, plant based diet - lifestyle recommendation formCLINICAL IMPRESSION/PLAN:Mary Cha has intermittent rapid ventricular response. There is noindication of any other abnormal rhythm. Her symptoms were present during theEKG.I reassured her. She was concerned about decompensated heart failure. I hear nocongestion in her lungs and her edema is stable. She's been encouraged to wearsupport stockings, which she refuses to do.She was reminded that that her INR is overdue. She is also overdue her TSH andnever had her cortisol level drawn. She was directed to the lab.I've suggested that she take an extra metoprolol 50 milligrams daily if she ishaving a sensation of rapid heart rate.I will see her next month as originally scheduled.Written and verbal health teaching given to patient, patient verbalizesunderstanding and agrees with treatment plan.DIAGNOSIS FOR VISIT:PalpitationsHypertensionHIS TORY OF PRESENT ILLNESSPatricia Zenobia Cha returns for problem follow-up visit. She dropped in becauseshe was in the area. She was experiencing some heavier heartbeats today.She has chronic atrial fibrillation and has declined further antiarrhythmictherapy. She has elected rate control. She has been taking her ANDquot;pinkpillANDquot; twice daily. She's had no recent chest discomfort. She is understress today and has had several other office visits. Her edema has been worsetoday but she's been on her feet. She has declined wearing support stockings.She is taking her diuretic. She's had no syncope, TIAs, amaurosis orclaudication.She has not followed up with electrophysiology or endocrinology.ALLERGIES:ALLERGIES Allergen Reactions- Codeine Other: See Comments ANDquot;hallucinatuionsANDquot;- Sulfa (Sulfonamide * Other: See Comments ANDquot;feel like I have the FluANDquot;CURRENT OUTPATIENT MEDICATIONS:lisinopril (ZESTRIL, PRINIVIL) 10 mg tablet TAKE ONE TABLET BY MOUTH DAILYmetoprolol tartrate, short acting, (LOPRESSOR) 50 mg tablet Take 1 tablet bymouth twice daily.estradiol (ESTRACE) 0.01 % (0.1 mg/gram) vaginal cream Use 3 g vaginally oncedaily.spironolactone (ALDACTONE) 25 mg tablet Take 1 tablet by mouth once daily.magnesium oxide (MAG-OX) 400 mg tablet TAKE ONE TABLET BY MOUTH DAILYwarfarin (COUMADIN) 3 mg tablet Take 1 tablet by mouth once daily. Or asdirectedfurosemide (LASIX) 20 mg tablet Take 1 tablet by mouth once daily.warfarin (COUMADIN) 4 mg tablet Take 1 tablet by mouth once daily.conjugated estrogens (PREMARIN) vaginal cream Use 1 g vaginally every otherday.warfarin (COUMADIN) 3 mg tablet Take 1 tablet by mouth once daily.gabapentin (NEURONTIN) 300 mg capsule Take 300 mg by mouth four times daily.latanoprost (XALATAN) 0.005 % ophthalmic solution Use 1 Drop in both eyes oncedaily.PHYSICAL EXAMINATION:VITAL SIGNS: BP 124/81 Pulse 73 Ht 5' 8ANDquot; (1.73m) Wt 0 lb (0.0kg)Chest: Clear to percussion and auscultation. Trachea is midline. Air entry isequal. Cardiac: Irregularly irregular rhythm. S1 and S2 are normal. PMI isnondisplaced. There is a 2/6 murmur of tricuspid insufficiency. Carotids arebrisk without bruits. JVP is less than 10 cm. Abdomen: Soft and nontender.There are no pulsatile masses or bruits. No liver enlargement. Bowel soundsare active. Extremities: 2 plus ankle edema. Pulses are intact andsymmetrical.EKG demonstrates atrial fibrillation. There is nonspecific repolarizationabnormality. Rate is slightly higher than on previous study, but otherwise nochange.Recent labs reviewed. Renal function is stable. Magnesium was normal.Electronically Signed:Shaw Maria 2017 4:23 PMCC: Diego Cantrell MD 01/26/2018 4:24 PM SignedTake an extra metoprolol on days when your heart rate seems faster.Referring Provider: VÍCTOR VALLE [[id number]]Allergies As of Date: 01/26/2018 Noted Allergy ReactionCODEINE 12/03/2003 14 - Other: See Comments Comments: hallucinatuionsSULFA (SULFONAMIDE ANTIBIOTICS) 12/03/2003 14 - Other: See Comments Comments: feel like I have the FluDate Reviewed: 01/26/2018Reviewed by: Rhonda Bhatti Ma - Fully AssessedReason for Visit: Follow Up [171]Primary Visit Diagnosis:Atrial fibrillation, chronic (HCC) [I48.2] Other Visit Diagnosis:Chronic diastolic CHF (congestive heart failure) ([facility]) [I50.32]Order(s):ECG B/O W INTERP (MED OFFICE) [ECG06] Order #: [id number] as of 01/26/2018 Sig: LISINOPRIL 10 MG TABLET TAKE ONE TABLET BY MOUTH DAILY METOPROLOL TARTRATE 50 MG TAB* Take 1 tablet by mouth twice * ESTRADIOL 0.01% (0.1 MG/GRAM)* Use 3 g vaginally once daily. SPIRONOLACTONE 25 MG TABLET Take 1 tablet by mouth once d* MAGNESIUM OXIDE 400 MG TABLET TAKE ONE TABLET BY MOUTH DAILY WARFARIN 3 MG TABLET Take 1 tablet by mouth once d* FUROSEMIDE 20 MG TABLET Take 1 tablet by mouth once d* WARFARIN 4 MG TABLET Take 1 tablet by mouth once d* CONJUGATED ESTROGENS 0.625 MG* Use 1 g vaginally every other* WARFARIN 3 MG TABLET Take 1 tablet by mouth once d* GABAPENTIN 300 MG CAPSULE Take 300 mg by mouth four drea* LATANOPROST 0.005 % EYE DROPS Use 1 Drop in both eyes once *Problem List As Of Date 01/26/2018 Noted Resolved CARDIOMEGALY [I51.7] INVALID FOR* CARDIAC DYSRHYTHMIAS NEC [I49.8] INVALID FOR* Essential hypertension [I10] INVALID FOR* Priority: E More... Atrial fibrillation [I48.91] INVALID FOR* Priority: C More... SUMMARY [V999.95] INVALID FOR* Priority: A More... Therapeutic drug monitoring [Z51.81] INVALID FOR*08/01/2016 More... Anticoagulated on warfarin [Z79.01] INVALID FOR* Priority: D More... Trigeminal neuralgia [G50.0] INVALID FOR* More... Hyponatremia [E87.1] INVALID FOR* Other and unspecified hyperlipidemia [E78.5] INVALID FOR* Urinary tract infection associated with cathete*INVALID FOR* ADHF (acute decompensated heart failure) ([facility]) *INVALID FOR*08/01/2016 Priority: A More... SUMMARY INVALID FOR* Priority: A More... Hyperthyroidism [E05.90] INVALID FOR* Priority: F More... Dehydration [E86.0] INVALID FOR* Priority: B More... Hypotension [I95.9] INVALID FOR* Priority: B More... UTI (urinary tract infection) [N39.0] INVALID FOR* More... Bilateral lower extremity edema [R60.0] INVALID FOR* More... Cardiomyopathy, nonischemic (HCC) [I42.8] INVALID FOR* Other instructions from your clinician: Take an extra metoprolol on days when your heart rate seems faster. Status:Closed by VÍCTOR VALLE MD on 01/26/18 [facility] PROGRESSon 01-26-2018 PROGRESS HNO ID: [id number] thor: Víctor Flores: (none)Author Type: PhysicianType: Progress NotesFiled: 01/26/2018 4:43 PMNote Text:PERTINENT CARDIAC HISTORYAtrial fib - permanent, multiple c/version, multiple drug trials, ratecontrolHTNTricuspid insufficiency - moderateHyponatremiaAmiodarone thyrotoxicosisCHF - diastolicADHERENCE TO GUIDELINESACE-I or ARB for HF with prior LVEF<40 (NQF 0081) - N/AASA or Plavix for ASHD (NQF 0067) - N/ABeta nancy for ASHD with prior PA or prior LVEF<40 (NQF 0070) - N/ABeta nancy for HF with prior LVEF<40 (NQF 0083) - N/AACE-I or ARB for ASHD with DM or prior LVEF<40 (NQF 0066) - N/AStatin therapy for ASHD or FHL or DM - N/ABMI documented and plan if >25 (NQF 0421) - lifestyle recommendation formTobacco use screening and referral (NQF 0028) - lifestyle recommendationformRecommendation for whole food, plant based diet - lifestyle recommendationformCLINICAL IMPRESSION/PLAN:Mary Cha has intermittent rapid ventricular response. There is noindication of any other abnormal rhythm. Her symptoms were present duringthe EKG.I reassured her. She was concerned about decompensated heart failure. Ihear no congestion in her lungs and her edema is stable. She's beenencouraged to wear support stockings, which she refuses to do.She was reminded that that her INR is overdue. She is also overdue her TSHand never had her cortisol level drawn. She was directed to the lab.I've suggested that she take an extra metoprolol 50 milligrams daily ifshe is having a sensation of rapid heart rate.I will see her next month as originally scheduled.Written and verbal health teaching given to patient, patient verbalizesunderstanding and agrees with treatment plan.DIAGNOSIS FOR VISIT:PalpitationsHypertensionHIS TORY OF PRESENT ILLNESSPatricia Zenobia Cha returns for problem follow-up visit. She dropped inbecause she was in the area. She was experiencing some heavier heartbeatstoday.She has chronic atrial fibrillation and has declined furtherantiarrhythmic therapy. She has elected rate control. She has been takingher pink pill twice daily. She's had no recent chest discomfort. She isunder stress today and has had several other office visits. Her edema hasbeen worse today but she's been on her feet. She has declined wearingsupport stockings. She is taking her diuretic. She's had no syncope, TIAs,amaurosis or claudication.She has not followed up with electrophysiology or endocrinology.ALLERGIES:ALLERGIES Allergen Reactions- Codeine Other: See Comments hallucinatuions- Sulfa (Sulfonamide * Other: See Comments feel like I have the FluCURRENT OUTPATIENT MEDICATIONS:lisinopril (ZESTRIL, PRINIVIL) 10 mg tablet TAKE ONE TABLET BY MOUTH DAILYmetoprolol tartrate, short acting, (LOPRESSOR) 50 mg tablet Take 1 tabletby mouth twice daily.estradiol (ESTRACE) 0.01 % (0.1 mg/gram) vaginal cream Use 3 g vaginallyonce daily.spironolactone (ALDACTONE) 25 mg tablet Take 1 tablet by mouth once daily.magnesium oxide (MAG-OX) 400 mg tablet TAKE ONE TABLET BY MOUTH DAILYwarfarin (COUMADIN) 3 mg tablet Take 1 tablet by mouth once daily. Or asdirectedfurosemide (LASIX) 20 mg tablet Take 1 tablet by mouth once daily.warfarin (COUMADIN) 4 mg tablet Take 1 tablet by mouth once daily.conjugated estrogens (PREMARIN) vaginal cream Use 1 g vaginally everyother day.warfarin (COUMADIN) 3 mg tablet Take 1 tablet by mouth once daily.gabapentin (NEURONTIN) 300 mg capsule Take 300 mg by mouth four timesdaily.latanoprost (XALATAN) 0.005 % ophthalmic solution Use 1 Drop in both eyesonce daily.PHYSICAL EXAMINATION:VITAL SIGNS: BP 124/81 Pulse 73 Ht 5' 8 (1.73m) Wt 0 lb (0.0kg)Chest: Clear to percussion and auscultation. Trachea is midline. Airentry is equal. Cardiac: Irregularly irregular rhythm. S1 and S2 arenormal. PMI is nondisplaced. There is a 2/6 murmur of tricuspidinsufficiency. Carotids are brisk without bruits. JVP is less than 10cm. Abdomen: Soft and nontender. There are no pulsatile masses orbruits. No liver enlargement. Bowel sounds are active. Extremities: 2plus ankle edema. Pulses are intact and symmetrical.EKG demonstrates atrial fibrillation. There is nonspecific repolarizationabnormality. Rate is slightly higher than on previous study, but otherwiseno change.Recent labs reviewed. Renal function is stable. Magnesium was normal.Electronically Signed:Shaw Maria 2017 4:23 [facility] Reno Bains MD [facility] CNOVon 09-01-2017 CNOV Office Visit (AGCARDWST) Marybeth CHA ([id number]) 1935 [facility] Time Provider Vdcaxtziqg58/1/17 8:30 AM VÍCTOR VALLE AGCARDWST During your visit today, we recorded the following information about you: Pulse Blood pressure Weight 72/minute 114/77 68.8 kgVíctor Valle MD 09/01/2017 6:06 PM SignedPERTINENT CARDIAC HISTORYAtrial fib - permanent, multiple c/version, multiple drug trials, rate controlHTNTricuspid insufficiency - moderateHyponatremiaAmiodarone thyrotoxicosisADHERENCE TO GUIDELINESACE-I or ARB for HF with prior LVEFANDlt;40 (NQF 0081) - N/AASA or Plavix for ASHD (NQF 0067) - N/ABeta nancy for ASHD with prior PA or prior LVEFANDlt;40 (NQF 0070) - N/ABeta nancy for HF with prior LVEFANDlt;40 (NQF 0083) - N/AACE-I or ARB for ASHD with DM or prior LVEFANDlt;40 (NQF 0066) - N/AStatin therapy for ASHD or FHL or DM - N/ABMI documented and plan if ANDgt;25 (NQF 0421) - lifestyle recommendation formTobacco use screening and referral (NQF 0028) - lifestyle recommendation formRecommendation for whole food, plant based diet - lifestyle recommendation formCLINICAL IMPRESSION/PLAN:Mary Cha is doing reasonably well. Her volume is well-controlled atthis time. There is no evidence of progressive right heart dysfunction. Heratrial fibrillation is well-controlled. In fact, she may benefit from adecrease in her metoprolol, as her blood pressure is borderline low and she ishaving some exercise intolerance.She's been advised to decrease metoprolol to 50 milligrams twice daily.We discussed her thyroid disease. Her TSH is now normal. She was reassured thatthis is appropriate.INR will continue to be checked in our office. She will have basic profile,magnesium and we will check cortisol level.I will see her in 6 months or as needed. She's been advised to try increasingexercise to get her weight under better control.Written and verbal health teaching given to patient, patient verbalizesunderstanding and agrees with treatment plan.This note was generated using [employer] voice recognition system, and there may besome incorrect words, spellings, and punctuation that were not noted inchecking the note before saving.DIAGNOSIS FOR VISIT:Atrial ablationTricuspid insufficiencyChronic hyponatremiaHISTORY OF PRESENT ILLNESSMary Cha returns for follow-up of multiple cardiac issues, as notedabove. She has been lost to follow-up for the last year. [place].She has elected to continue rate control. She has declined any additional drugtrials, which have all been unsuccessful at maintaining sinus rhythm.She reports slight decrease in exercise tolerance. Her pressure has beenborderline low. She has had occasional palpitations.She denies orthopnea. Her edema has generally been better. She's had nosyncope, TIAs, amaurosis or claudication.She continues to restrict sodium and free water.ALLERGIES:ALLERGIESAllergen Reactions- Codeine Other: See Comments ANDquot;hallucinatuionsANDquot;- Sulfa (Sulfonamide * Other: See Comments ANDquot;feel like I have the FluANDquot;CURRENT OUTPATIENT MEDICATIONS:spironolactone (ALDACTONE) 25 mg tablet Take 1 tablet by mouth once daily.magnesium oxide (MAG-OX) 400 mg tablet TAKE ONE TABLET BY MOUTH DAILYwarfarin (COUMADIN) 3 mg tablet Take 1 tablet by mouth once daily. Or asdirectedfurosemide (LASIX) 20 mg tablet Take 1 tablet by mouth once daily.metoprolol tartrate, short acting, (LOPRESSOR) 50 mg tablet TAKE 1 AND 1/2TABLETS BY MOUTH TWICE DAILYwarfarin (COUMADIN) 4 mg tablet Take 1 tablet by mouth once daily.lisinopril (ZESTRIL, PRINIVIL) 10 mg tablet TAKE ONE TABLET BY MOUTH EVERY DAYconjugated estrogens (PREMARIN) vaginal cream Use 1 g vaginally every otherday.warfarin (COUMADIN) 3 mg tablet Take 1 tablet by mouth once daily.gabapentin (NEURONTIN) 300 mg capsule Take 300 mg by mouth four times daily.latanoprost (XALATAN) 0.005 % ophthalmic solution Use 1 Drop in both eyes oncedaily.PAST MEDICAL HISTORYDiagnosis Date- ADHF (acute decompensated heart failure) 11/23/2015- Atrial fibrillation (HCC)- Cardiomegaly- Essential hypertension, benign- Hyperthyroidism 11/25/2015- Hyponatremia 09/02/2013- Other and unspecified hyperlipidemia 04/16/2015- Other specified cardiac dysrhythmias(427.89)- Palpitations- Personal history of unspecified urinary disorderPAST SURGICAL HISTORYProcedure Laterality Date- PARTIAL HIP REPLACEMENT Hip replacement, partial- PAST SURGICAL HISTORY OF 1987 AFTER ACCIDENT ON RIGHT ARMFAMILY HISTORYProblem Relation Age of Onset- atrial fibrillation[Other] [OTHER] Brother- leg edema[Other] [OTHER] Daughter- leg edema[Other] [OTHER] Mother- Ischemic Heart Disease Mother MIs- Thyroid Mother Goiter- Thyroid Father GoiterSocial History Marital status: Spouse name: Years of education: Number of children: 4Occupational HistoryOccupation Employer CommentteacherSocial History Main Topics Smoking status: Never Smoker Smokeless status: Never Used Alcohol use: No Drug use: NoREVIEW OF SYSTEMS: General: No chills, fever, weight loss, night sweats.Respiratory: No productive cough. Cardiac: As noted above. GI: No melena.: No dysuria. Musculoskeletal: No myalgias.PHYSICAL EXAMINATION: S/he is alert and in no distress.VITAL SIGNS: BP 114/77 Pulse 72 Wt 151 lb 9.6 oz (68.8kg)SHEENT: Skin is warm and dry. No xanthelasmas appreciated. Pharynx isbenign. There is no oral cyanosis. Neck: supple. No adenopathy or thyroidenlargement. Chest: Clear to percussion and auscultation. Trachea is midline. Air entry is equal. There is no chest wall tenderness. Cardiac: Irregularlyirregular rhythm. S1 and S2 are normal. PMI is nondisplaced. There is a softmurmur of tricuspid insufficiency. No click is heard. Carotids are briskwithout bruits. JVP is less than 10 cm and no V-wave is noted. Abdomen: Softand nontender. There are no pulsatile masses or bruits. No liver enlargement. Bowel sounds are active. Extremities: 1 plus edema. There are no venousulcers. Pulses are intact and symmetrical. No clubbing or cyanosis. Nofemoral bruits. Neurologic: Grossly normal motor and sensory. S/he is alertand oriented x4.EKG shows atrial fibrillation with relatively slow ventricular response. Thereis LVH and diffuse repolarization abnormality. No significant change is noted.Recent labs reviewed. Sodium was 128. TSH is within normal limits.Electronically Signed:Eligio Maria 2016 9:23 [facility]:Diego Cantrell MD 09/01/2017 9:23 AM Signed,LIFESTYLE CHANGEA healthy lifestyle is the most important component of your overall treatmentplan. Please give serious thought to the following areas and commit to makinglong term changes.EAT A WHOLE FOOD, PLANT BASED DIETThe nutrition your body gets is more important than the medicine you take.What matters most is the overall way you eat. We encourage you to minimize theuse of animal products (which include dairy and all meats except fatty fish)and use whole, unprocessed plant foods to provide your protein, vitamins andother nutrients. We have a lot of information to share with you on this topic. We also hold Shared Medical Appointments, where you can come visit with in the company of other patients and spend over an hour talking aboutthe challenges of changing the way you eat. This is not a ANDquot;dietANDquot;.It is a way of life that you will keep with you.EXERCISE REGULARLYIt is not important to spend hours in the gym, lifting weights and perspiringheavily. A total of 2-3 hours per week of aerobic (causing you to bemoderately short of breath) exercise is sufficient to improve your health.Talk to us before you begin a new exercise program, if you have heart diseaseor experience shortness of breath or chest pain.REDUCE STRESSChronic emotional and physical stress leads to disease. Ways of reducingstress include meditation, visualization, prayer, yoga and other forms ofrelaxation therapy. Consistency is the church. Find a technique that works foryou and do it every day.CULTIVATE RELATIONSHIPSLoneliness and isolation have a major negative impact on health. Seek outothers who can love, care for and nurture you. Avoid hurtful relationships.MAINTAIN IDEAL BODY WEIGHTThe best way to do this is to do all the things above. Our bodies naturallyfind the right weight if we keep moving and feed ourselves the right food. Ifyour BMI is greater than 25, we strongly recommend a referral to a weightmanagement program. Please speak to us or your family physician aboutavailable programs.AVOID NICOTINE IN ALL FORMSThis includes all tobacco products, whether chewed, smoked, vaped, or rubbed onthe skin. Smoking cessation programs, which can make use of tobaccosubstitutes, medications to suppress cravings and behavior management, areavailable. Please contact your family physician about programs in your area.Daryl Hernandez, RN, RN 09/04/2017 8:37 AM SignedCopy of OV note mailed to Dr. 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]Order(s):ECG B/O W INTERP (MED OFFICE) [ECG06] Order #: [id number] MAGNESIUM BLD [SQMG1] Order #: [id number] FUTURE PROTHROMBIN TIME/PT [SQPT] Order #: [id number] FUTURE MAGNESIUM BLD [SQMG1] Order #: [id number] FUTURE PARKING FOR HANDICAPPED [3874558] Order #: [id number] metoprolol tartrate, short acting, (LOPRESSOR) 50 mg tabletTake 1 tablet by mouth twice daily.Disp: 90 tabletRfl: 11 CORTISOL BLD [SQCOR] Order #: [id number] FUTUREPrescriptions as of 09/01/2017 Sig: METOPROLOL TARTRATE 50 MG TAB* Take 1 tablet by mouth twice * SPIRONOLACTONE 25 MG TABLET Take 1 tablet by mouth once d* MAGNESIUM OXIDE 400 MG TABLET TAKE ONE TABLET BY MOUTH DAILY WARFARIN 3 MG TABLET Take 1 tablet by mouth once d* FUROSEMIDE 20 MG TABLET Take 1 tablet by mouth once d* WARFARIN 4 MG TABLET Take 1 tablet by mouth once d* LISINOPRIL 10 MG TABLET TAKE ONE TABLET BY MOUTH EVER* CONJUGATED ESTROGENS 0.625 MG* Use 1 g vaginally every other* WARFARIN 3 MG TABLET Take 1 tablet by mouth once d* GABAPENTIN 300 MG CAPSULE Take 300 mg by mouth four drea* LATANOPROST 0.005 % EYE DROPS Use 1 Drop in both eyes once *Problem List As Of Date 09/01/2017 Noted Resolved CARDIOMEGALY [I51.7] INVALID FOR* CARDIAC DYSRHYTHMIAS NEC [I49.8] INVALID FOR* Essential hypertension [I10] INVALID FOR* Priority: E More... Atrial fibrillation [I48.91] INVALID FOR* Priority: C More... SUMMARY [V999.95] INVALID FOR* Priority: A More... Therapeutic drug monitoring [Z51.81] INVALID FOR*08/01/2016 More... Anticoagulated on warfarin [Z79.01] INVALID FOR* Priority: D More... Trigeminal neuralgia [G50.0] INVALID FOR* More... Hyponatremia [E87.1] INVALID FOR* Other and unspecified hyperlipidemia [E78.5] INVALID FOR* Urinary tract infection associated with cathete*INVALID FOR* ADHF (acute decompensated heart failure) (HCC) *INVALID FOR*08/01/2016 Priority: A More... SUMMARY INVALID FOR* Priority: A More... Hyperthyroidism [E05.90] INVALID FOR* Priority: F More... Dehydration [E86.0] INVALID FOR* Priority: B More... Hypotension [I95.9] INVALID FOR* Priority: B More... UTI (urinary tract infection) [N39.0] INVALID FOR* More... Bilateral lower extremity edema [R60.0] INVALID FOR* More... Cardiomyopathy, nonischemic (HCC) [I42.8] INVALID FOR* Other instructions from your clinician: , LIFESTYLE CHANGE A healthy lifestyle is the most important component of your overall treatment plan. Please give serious thought to the following areas and commit to making longterm changes. EAT A WHOLE FOOD, PLANT BASED DIET The nutrition your body gets is more important than the medicine you take. What matters most is the overall way you eat. We encourage you to minimize the use of animal products (which include dairy and all meats except fatty fish) and use whole, unprocessed plant foods to provide your protein, vitamins and other nutrients. We have a lot of information to share with you on this topic. We also hold Shared Medical Appointments, where you can come visit with Dr. Valel in the company of other patients and spend over an hour talking about the challenges of changing the way you eat. This is not a diet. It is a way of life that you will keep with you. EXERCISE REGULARLY It is not important to spend hours in the gym, lifting weights and perspiring heavily. A total of 2-3 hours per week of aerobic (causing you to be moderately short of breath) exercise is sufficient to improve your health. Talk to us before you begin a new exercise program, if you have heart disease or experience shortness of breath or chest pain. REDUCE STRESS Chronic emotional and physical stress leads to disease. Ways of reducing stress include meditation, visualization, prayer, yoga and other forms of relaxation therapy. Consistency is the church. Find a technique that works for you and do it every day. CULTIVATE RELATIONSHIPS Loneliness and isolation have a major negative impact on health. Seek out others who can love, care for and nurture you. Avoid hurtful relationships. MAINTAIN IDEAL BODY WEIGHT The best way to do this is to do all the things above. Our bodies naturally find the right weight if we keep moving and feed ourselves the right food. If your BMI is greater than 25, we strongly recommend a referral to a weight management program. Please speak to us or your family physician about available programs. AVOID NICOTINE IN ALL FORMS This includes all tobacco products, whether chewed, smoked, vaped, or rubbed on the skin. Smoking cessation programs, which can make use of tobacco substitutes, medications to suppress cravings and behavior management, are available. Please contact your family physician about programs in your area.Visit Notes:>> Daryl Quezada) LAURITA Hernandez Mon Sep 04, 2017 8:35 AM Status: SignedCopy of OV note mailed to Dr. Bains's office.Prescriptions ordered this encounter Disp Refills Start End METOPROLOL TARTRATE 50 MG TABLET 90 t* 11 09/01/2017 Class: Med Update Cmt: This prescription was filled on 04/05/2017. Any refills authorized will be placed on file. Route: ORAL Sig: Take 1 tablet by mouth twice daily.Medications Discontinued During This Encounter metoprolol tartrate, short acting, (* 90 t* 11 04/05/2017 09/01/2017 Cmt: This prescription was filled on 04/05/2017. Any refills authorized will be placed on file. Sig: TAKE 1 AND 1/2 TABLETS BY MOUTH TWICE DAILY Disc: Reason for discontinue is not on file. Status:Closed by VÍCTOR VALLE MD on 09/01/17 [facility] PROGRESSon 09-01-2017 PROGRESS HNO ID: [id number] thor: Víctor Flores: (none)Author Type: PhysicianType: Progress NotesFiled: 09/01/2017 6:06 PMNote Text:PERTINENT CARDIAC HISTORYAtrial fib - permanent, multiple c/version, multiple drug trials, ratecontrolHTNTricuspid insufficiency - moderateHyponatremiaAmiodarone thyrotoxicosisADHERENCE TO GUIDELINESACE-I or ARB for HF with prior LVEF<40 (NQF 0081) - N/AASA or Plavix for ASHD (NQF 0067) - N/ABeta nancy for ASHD with prior PA or prior LVEF<40 (NQF 0070) - N/ABeta nancy for HF with prior LVEF<40 (NQF 0083) - N/AACE-I or ARB for ASHD with DM or prior LVEF<40 (NQF 0066) - N/AStatin therapy for ASHD or FHL or DM - N/ABMI documented and plan if >25 (NQF 0421) - lifestyle recommendation formTobacco use screening and referral (NQF 0028) - lifestyle recommendationformRecommendation for whole food, plant based diet - lifestyle recommendationformCLINICAL IMPRESSION/PLAN:Mary Cha is doing reasonably well. Her volume is well-controlledat this time. There is no evidence of progressive right heart dysfunction.Her atrial fibrillation is well-controlled. In fact, she may benefit froma decrease in her metoprolol, as her blood pressure is borderline low andshe is having some exercise intolerance.She's been advised to decrease metoprolol to 50 milligrams twice daily.We discussed her thyroid disease. Her TSH is now normal. She was reassuredthat this is appropriate.INR will continue to be checked in our office. She will have basicprofile, magnesium and we will check cortisol level.I will see her in 6 months or as needed. She's been advised to tryincreasing exercise to get her weight under better control.Written and verbal health teaching given to patient, patient verbalizesunderstanding and agrees with treatment plan.This note was generated using [employer] voice recognition system, and theremay be some incorrect words, spellings, and punctuation that were notnoted in checking the note before saving.DIAGNOSIS FOR VISIT:Atrial ablationTricuspid insufficiencyChronic hyponatremiaHISTORY OF PRESENT ILLNESSMary Cha returns for follow-up of multiple cardiac issues, asnoted above. She has been lost to follow-up for the last year. Shecontinues to follow-up in [place] with electrophysiology.She has elected to continue rate control. She has declined any additionaldrug trials, which have all been unsuccessful at maintaining sinus rhythm.She reports slight decrease in exercise tolerance. Her pressure has beenborderline low. She has had occasional palpitations.She denies orthopnea. Her edema has generally been better. She's had nosyncope, TIAs, amaurosis or claudication.She continues to restrict sodium and free water.ALLERGIES:ALLERGIESAllergen Reactions- Codeine Other: See Comments hallucinatuions- Sulfa (Sulfonamide * Other: See Comments feel like I have the FluCURRENT OUTPATIENT MEDICATIONS:spironolactone (ALDACTONE) 25 mg tablet Take 1 tablet by mouth once daily.magnesium oxide (MAG-OX) 400 mg tablet TAKE ONE TABLET BY MOUTH DAILYwarfarin (COUMADIN) 3 mg tablet Take 1 tablet by mouth once daily. Or asdirectedfurosemide (LASIX) 20 mg tablet Take 1 tablet by mouth once daily.metoprolol tartrate, short acting, (LOPRESSOR) 50 mg tablet TAKE 1 AND 1/2TABLETS BY MOUTH TWICE DAILYwarfarin (COUMADIN) 4 mg tablet Take 1 tablet by mouth once daily.lisinopril (ZESTRIL, PRINIVIL) 10 mg tablet TAKE ONE TABLET BY MOUTH EVERYDAYconjugated estrogens (PREMARIN) vaginal cream Use 1 g vaginally everyother day.warfarin (COUMADIN) 3 mg tablet Take 1 tablet by mouth once daily.gabapentin (NEURONTIN) 300 mg capsule Take 300 mg by mouth four timesdaily.latanoprost (XALATAN) 0.005 % ophthalmic solution Use 1 Drop in both eyesonce daily.PAST MEDICAL HISTORYDiagnosis Date- ADHF (acute decompensated heart failure) 11/23/2015- Atrial fibrillation (HCC)- Cardiomegaly- Essential hypertension, benign- Hyperthyroidism 11/25/2015- Hyponatremia 09/02/2013- Other and unspecified hyperlipidemia 04/16/2015- Other specified cardiac dysrhythmias(427.89)- Palpitations- Personal history of unspecified urinary disorderPAST SURGICAL HISTORYProcedure Laterality Date- PARTIAL HIP REPLACEMENT Hip replacement, partial- PAST SURGICAL HISTORY OF 1987 AFTER ACCIDENT ON RIGHT ARMFAMILY HISTORYProblem Relation Age of Onset- atrial fibrillation[Other] [OTHER] Brother- leg edema[Other] [OTHER] Daughter- leg edema[Other] [OTHER] Mother- Ischemic Heart Disease Mother MIs- Thyroid Mother Goiter- Thyroid Father GoiterSocial History Marital status: Spouse name: Years of education: Number of children: 4Occupational HistoryOccupation Employer CommentteacherSocial History Main Topics Smoking status: Never Smoker Smokeless status: Never Used Alcohol use: No Drug use: NoREVIEW OF SYSTEMS: General: No chills, fever, weight loss, night sweats. Respiratory: No productive cough. Cardiac: As noted above. GI: Nomelena. : No dysuria. Musculoskeletal: No myalgias.PHYSICAL EXAMINATION: S/he is alert and in no distress.VITAL SIGNS: BP 114/77 Pulse 72 Wt 151 lb 9.6 oz (68.8kg)SHEENT: Skin is warm and dry. No xanthelasmas appreciated. Pharynx isbenign. There is no oral cyanosis. Neck: supple. No adenopathy orthyroid enlargement. Chest: Clear to percussion and auscultation.Trachea is midline. Air entry is equal. There is no chest walltenderness. Cardiac: Irregularly irregular rhythm. S1 and S2 are normal. PMI is nondisplaced. There is a soft murmur of tricuspid insufficiency.No click is heard. Carotids are brisk without bruits. JVP is less than10 cm and no V-wave is noted. Abdomen: Soft and nontender. There are nopulsatile masses or bruits. No liver enlargement. Bowel sounds areactive. Extremities: 1 plus edema. There are no venous ulcers. Pulsesare intact and symmetrical. No clubbing or cyanosis. No femoral bruits.Neurologic: Grossly normal motor and sensory. S/he is alert and orientedx4.EKG shows atrial fibrillation with relatively slow ventricular response.There is LVH and diffuse repolarization abnormality. No significant changeis noted.Recent labs reviewed. Sodium was 128. TSH is within normal limits.Electronically Signed:Víctor Valle MDDecember 2016 9:23 [facility]:Reno Bains MD [facility] Vital Signs Date Time Vital Sign Value Performing Clinician Dick mak 10-11-2024 13:54-0500 Body height 170.2 cm Josesito Lora MD Work Phone: [facility] 10-11-2024 13:54-0500 Body mass index (BMI) [Ratio] 23.49 kg/m2 Josesito Lora MD Work Phone: [facility] 10-11-2024 13:54-0500 Body weight 68.04 kg Josesito Lora MD Work Phone: [facility] 10-11-2024 13:54-0500 Diastolic blood pressure 60 mm[Hg] Josesito Lora MD Work Phone: [facility] 10-11-2024 13:54-0500 Heart rate 78 /min Josesito Lora MD Work Phone: [facility] 10-11-2024 13:54-0500 Systolic blood pressure 121 mm[Hg] Josesito Lora MD Work Phone: [facility] 04-24-2024 14:32-0400 Body height 172.7 cm Luis Barron MD Work Phone: [facility] 04-24-2024 14:32-0400 Body mass index (BMI) [Ratio] 24.02 kg/m2 Luis Barron MD Work Phone: [facility] 04-24-2024 14:32-0400 Body weight 71.67 kg Luis Barron MD Work Phone: [facility] 04-24-2024 14:32-0400 Diastolic blood pressure 60 mm[Hg] Luis Barron MD Work Phone: [facility] 04-24-2024 14:32-0400 Heart rate 70 /min Luis Barron MD Work Phone: [facility] 04-24-2024 14:32-0400 Respiratory rate 12 /min Luis Barron MD Work Phone: [facility] 04-24-2024 14:32-0400 SaO2% (BldA) [Mass fraction] 98 % Luis Barron MD Work Phone: [facility] 04-24-2024 14:32-0400 Systolic blood pressure 112 mm[Hg] Luis Barron MD Work Phone: [facility] 04-18-2023 09:39-0400 Body height 172.7 cm Reed Artis PA-C Work Phone: [facility] 04-18-2023 09:39-0400 Body temperature 97.5 [degF] Reed Artis PA-C Work Phone: [facility] 04-18-2023 09:39-0400 Body weight 73.94 kg Reed Artis PA-C Work Phone: [facility] 04-18-2023 09:39-0400 Diastolic blood pressure 68 mm[Hg] Reed Artis PA-C Work Phone: [facility] 04-18-2023 09:39-0400 Heart rate 82 /min Reed Artis PA-C Work Phone: [facility] 04-18-2023 09:39-0400 Respiratory rate 14 /min Reed Artis PA-C Work Phone: [facility] 04-18-2023 09:39-0400 SaO2% (BldA) [Mass fraction] 96 % Reed Artis PA-C Work Phone: [facility] 04-18-2023 09:39-0400 Systolic blood pressure 108 mm[Hg] Reed Artis PA-C Work Phone: [facility] 06-16-2022 11:56-0400 Body height 170.2 cm Asad Toledo MD Work Phone: [facility] 06-16-2022 11:56-0400 Body weight 68.04 kg Asad Toledo MD Work Phone: [facility] 06-16-2022 11:56-0400 Diastolic blood pressure 65 mm[Hg] Asad Toledo MD Work Phone: [facility] 06-16-2022 11:56-0400 Heart rate 82 /min Asad Toldeo MD Work Phone: [facility] 06-16-2022 11:56-0400 Systolic blood pressure 118 mm[Hg] Asad Toledo MD Work Phone: [facility] Encounters Encounter Date Encounter Type Care Provider Facility Start: 03-10-2025 End: 03-10-2025 ambulatory BUTROS LATOUF Facility:[facility] Start: 10-11-2024 End: 10-11-2024 ambulatory JOSESITO LORA Facility:[facility] Start: 10-11-2024 End: 10-11-2024 Office outpatient visit 40 minutes Josesito Lora MD Work Phone: Cardiology Comment on above: Permanent atrial fib rillation (HCC) (Primary Dx) Start: 10-11-2024 End: 10-11-2024 ambulatory LOW WHITE Facility:[facility] Start: 07-25-2024 ambulatory REZA RAHMAN [facility] Start: 07-24-2024 End: 07-24-2024 ambulatory [facility] Facility:[facility] Start: 06-17-2024 ambulatory REZA RAHMAN [facility] Start: 04-24-2024 End: 04-24-2024 ambulatory [facility] Facility:[facility] Start: 04-24-2024 End: 04-24-2024 Patient encounter procedure Luis Barron MD Work Phone: Cardiology Comment on above: Nonrheumatic mitral valve regurgitation (Primary Dx); Nonrheumatic tricuspid valve regurgitation; Left atrial enlargement; Permanent atrial fibrillation (HCC); Right atrial enlargement; Syncope and collapse Start: 04-24-2024 End: 04-24-2024 ambulatory LUIS BARRON Facility:[facility] Start: 03-25-2024 Orders Only Low roy MD Work Phone: Cardiology Comment on above: Permanent atrial fib rillation (HCC) (Primary Dx) Start: 12-18-[address] [facility] Comment on above: Triage (Records in E pic- previous Dr. Diallo pt, last seen 2019. ) Start: 12-15-2023 End: 07-22-2024 Orders Only Luis Barron MD Work Phone: Cardiology Comment on above: Essential hypertensi on (Primary Dx); Other general symptoms and signs Patient Question Start: 11-29-2023 Telephone encounter Reed echols PA-C Work Phone: Urology Comment on above: Results; Orders Start: 11-14-2023 End: 11-14-2023 [facility] Start: 08-21-2023 End: 08-21-2023 Patient encounter procedure [facility] Work Phone: Start: 08-21-2023 End: 08-21-2023 ambulatory Cedrick Espana [facility] Work Phone: Start: 06-26-2023 Telephone encounter Reed David oney PA-C Work Phone: Urology Comment on above: Results; Patient Upd ate Start: 04-18-2023 End: 04-18-2023 Patient encounter procedure Reedsabine Artis PA-C Work Phone: Urology Comment on above: Recurrent UTI (Prima ry Dx) Start: 04-05-2023 Telephone encounter Reed David oney PA-C Work Phone: Urology Comment on above: Results Start: 03-28-2023 Telephone encounter Reed David oney PA-C Work Phone: Urology Comment on above: Orders Start: 06-20-2022 Refill Reed Artis PA-C Work Phone: Urology Comment on above: Refill Request Start: 06-20-2022 Telephone encounter Reed David oney PA-C Work Phone: Urology Comment on above: Results Start: 06-16-2022 End: 06-16-2022 Patient encounter procedure Asad Toledo MD Work Phone: Cardiology Comment on above: Permanent atrial fib rillation (HCC) (Primary Dx) Start: 04-01-2022 Telephone encounter Reed David oney PA-C Work Phone: Urology Comment on above: UTI symptoms; Orders Start: 03-23-2022 Refill Reed Artis PA-C Work Phone: Urology Comment on above: Refill Request Start: 01-27-2022 Orders Only Josesito Barajas PA-C Work Phone: Urology Start: 01-26-2022 Telephone encounter Reed echols PA-C Work Phone: Urology Comment on above: Results Start: 01-14-2022 Telephone encounter Julieta cm MD Work Phone: [facility] Comment on above: Appointment Start: 06-19-2018 Patient encounter NURIAATILIODOMINIK ARDONLOISWHIT Escobar cility:[facility] Start: 03-27-2018 Patient encounter VÍCTOR VALLE [place] ility:[facility] Start: 01-26-2018 End: 01-26-2018 Ambulatory VÍCTOR Ramsey TOR[facility] Start: 09-01-2017 End: 09-01-2017 Ambulatory VÍCTOR Ramsey TORI [facility] Start: 09-09-2016 Refill Alhaji Cox MD [facility] Comment on above: Trigeminal neuralgia Start: 10-27-2015 Refill Alhaji Cox MD [facility] Comment on above: Trigeminal neuralgia (Primary Dx) Procedures Date Procedure Procedure Detail Performing Clinician Start: 08-21-2023 Bacteria identificat ion test Start: 08-21-2023 Throat culture Start: 04-18-2023 Urnls dip stick/tabl et rgnt auto w/o microscopy Reed Artis PA-C Work Phone: Plan of Treatment Date Care Activity Detail Author Start: 07-24-2027 Diabetes Screening Diabetes Screenin g [facility] Start: 09-20-2026 Diabetes Screening Diabetes Screenin g [facility] Start: 11-07-2025 DIABETES SCREEN DIABETES SCREEN [facility] Start: 11-07-2025 Diabetes Screening Diabetes Screenin g [facility] Start: 02-16-2025 DIABETES SCREEN DIABETES SCREEN [facility] Start: 10-29-2024 DIABETES SCREEN DIABETES SCREEN [facility] Start: 10-11-2024 End: 10-11-2024 Patient encounter procedure 10/11/2024 1:45 PM EST Office Visit Cardiology [address] [place] [address] Josesito Lora MD [address] [id number] Dx: Permanent atrial fibrillation (HCC) Cardiology Comment on above: Dx: Permanent atrial fibrillation (HCC) Start: 10-11-2024 End: 10-11-2024 ambulatory 10/11/2024 1:00 PM EST Results Only Cardiology [address] [place] [address] Dx: Permanent atrial fibrillation (HCC) Cardiology Comment on above: Dx: Permanent atrial fibrillation (HCC) Start: 10-02-2024 Advance Directive Discussion Advance Directive Discussion [facility] Start: 06-14-2024 End: 06-14-2024 Patient encounter procedure 06/14/2024 1:45 PM EDT Office Visit Cardiology [address] [place] [address] Josesito Lora MD [address] [place] [address] Dx: Permanent atrial fibrillation (HCC) Cardiology Comment on above: Dx: Permanent atrial fibrillation (HCC) Start: 06-14-2024 End: 06-14-2024 ambulatory 06/14/2024 1:00 PM EDT Results Only Cardiology [address] [place] [address] Dx: Permanent atrial fibrillation (HCC) Cardiology Comment on above: Dx: Permanent atrial fibrillation (HCC) Start: 06-02-2024 Covid-19 Vaccine ( season) Covid-19 Vaccine () [facility] Start: 06-02-2024 Influenza vaccination [facility] Start: 04-24-2024 End: 04-24-2024 Patient encounter procedure 04/24/2024 3:30 PM EDT Office Visit Vascular Medicine [address] [place] [address] Hyperlipidemia, unspecified hyperlipidemia type [E78.5] Vascular Medicine Comment on above: Hyperlipidemia, unsp ecified hyperlipidemia type [E78.5] Start: 04-24-2024 End: 04-24-2024 Patient encounter procedure 04/24/2024 1:30 PM EDT Office Visit Cardiology [address] [place] [address] Luis Barron MD [address] [place] [address] Hyperlipidemia, unspecified hyperlipidemia type [E78.5] Cardiology Comment on above: Hyperlipidemia, unsp ecified hyperlipidemia type [E78.5] Start: 04-24-2024 End: 04-24-2024 ambulatory 04/24/2024 1:00 PM EDT Results Only Cardiology [address] [place] [address] Hyperlipidemia, unspecified hyperlipidemia type [E78.5] Cardiology Comment on above: Hyperlipidemia, unsp ecified hyperlipidemia type [E78.5] Start: 10-02-2023 Advance Directive Discussion Advance Directive Discussion [facility] Start: 10-02-2023 Behavioral Health Screening Behavioral Health Screening [facility] Start: 10-02-2023 Depression Assessment Depression Ass [facility] Start: 06-02-2023 Covid-19 Vaccine () Covid-19 Vaccine () [facility] Start: 06-02-2023 Influenza vaccination [facility] Start: 03-29-2023 End: 05-29-2023 Bacteria identified in Urine by Culture [facility] Work Phone: Comment on above: Expected: 03/29/2023 (Approximate), Expires: 05/29/2023 Start: 10-02-2022 ADVANCE DIRECTIVE DISCUSSION ADVANCE DIRECTIVE DISCUSSION [facility] Start: 10-02-2022 DEPRESSION ASSESSMENT [facility] Start: 06-02-2022 Influenza vaccination [facility] Start: 04-01-2022 End: 06-01-2022 Bacteria identified in Urine by Culture [facility] Work Phone: Comment on above: Expected: 04/01/2022 , Expires: 06/01/2022 Start: 01-28-2022 COVID-19 VACCINE (4 - Booster for Moderna series) COVID-19 VACCINE (4 - Booster for Moderna series) [facility] Start: 11-24-2021 COVID-19 VACCINE (4 - Booster for Moderna series) COVID-19 VACCINE (4 - Booster for Moderna series) [facility] Start: 11-24-2021 COVID-19 VACCINE (4 - Moderna series) COVID-19 VACCINE (4 - Moderna series) [facility] Start: 10-02-2021 ADVANCE DIRECTIVE DISCUSSION ADVANCE DIRECTIVE DISCUSSION [facility] Start: 10-02-2021 DEPRESSION ASSESSMENT DEPRESSION ASS ESSMENT [facility] Start: 2011 RSV Vaccine (1 - 1-d ose 75+ series) RSV Vaccine (1 - 1-dose 75+ series) [facility] Start: 2001 Pneumococcal Vaccine : 65+ (1 - PCV) Pneumococcal Vaccine: 65+ (1 - PCV) [facility] Start: 2001 Pneumococcal Vaccine : 65+ (1 of 1 - PCV) Pneumococcal Vaccine: 65+ (1 of 1 - PCV) [facility] Start: 2001 PNEUMOCOCCAL: 65+ (1 - PCV) PNEUMOCOCCAL: 65+ (1 - PCV) [facility] Start: 2001 PNEUMOVAX AGE 65 AND OVER WITH 5YR LOOKBACK (#1) PNEUMOVAX AGE 65 AND OVER WITH 5YR LOOKBACK (#1) [facility] Start: 1996 RSV Vaccine (1 - 1-d ose 60+ series) RSV Vaccine (1 - 1-dose 60+ series) [facility] Start: 1986 Pneumococcal Vaccine : 50+ (1 of 1 - PCV) Pneumococcal Vaccine: 50+ (1 of 1 - PCV)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 Drop in both eyes once daily.^Disp: 1 Bottle^Rfl: 3 Adelita Love RN PHYSICAL EXAMINATION: BP 118/65 Pulse 82 Ht 170.2 cm (5' 7) Wt 68 kg (150 lb) BMI 23.49 kg/m General: Looks well; pleasant and cooperative Neck: No carotid bruits, JVP normal Lungs: Clear to auscultation Cardiac: Irreg irreg Abdomen: Soft, nontender, nondistended, no bruits Extremities: 2+ LE edema Neurologic: A & O x 3; CARDIOVASCULAR MEDICINE TESTING: Echo 03/31/2021 - Exam indication: Routine surveillance of mild valvular regurgitation (>3yrs) - The left ventricle is normal in size. Left ventricular systolic function is normal. EF = 55 5% (visual est.) Beat to beat variability in systolic function due to afib. - The right ventricle is normal in size. Right ventricular systolic function is low normal. - The left atrial cavity is severely dilated. - The right atrial cavity is severely dilated. - There is moderate (2+) holosystolic mitral valve regurgitation. Regurgitant orifice area (PISA) is 0.10 cm . - There is moderate (2+) tricuspid valve regurgitation. - Estimated right ventricular systolic pressure is 23 mmHg consistent with normal pulmonary artery pressures. Estimated right atrial pressure is 3 mmHg based on IVC assessment. - 2+ MR and TR likely functional in the setting of severely biatrial enlargement. - Exam was compared with the prior echocardiographic exam performed on 04/01/2020. Similar findings. ECG (reviewed by me): AF with CVR IMPRESSION: 1. Atrial fibrillation and flutter, permanent: Diagnosed in 2003? AADs were ineffective so rate control has been pursued. She is on metoprolol and apxiaban 5 mg BID which I confirmed is the correct dose. 2. Cardiomyopathy, usually tachy related and better with rate control, most recent LVEF 55% 3. 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 Hx amio thyrotoxicosis 5. Syncopal events during a wedding, lost bladder control and her daughter thought she had a seizure. She was hypotensive. No recurrent syncope 6. Negative stress test 2010 7. M[place], following up with Neuro Follow up 1y. Asad Toledo MD, MPH documented in this encounter [facility] 04-01-2022 Miscellaneous Notes Culture ordered. We are to call patient on cell phone on Monday. Pt is going to restart the Macrobid. Rhonda Bhatti Pt calling to report that she is having UTI symptoms again. She ran out of the daily Macrobid maintanence dose and has been off for 4-5 days. Urine is dark and it sidhu a lot when she goes. She is going out of state to visit her son who is battling cancer. She leaves Monday and will be gone 2 weeks. Pt aware that she needs to schedule her yearly appointment with Reed Artis PA-C Asking for order for culture. She was not aware that her macrobid was refilled on 03/30. She will pick that up and restart after submitting specimen Reed out of the office. Will check with covering provider to see if he can order. Rhonda Bhatti documented in this encounter [facility] 01-27-2022 Miscellaneous Notes Pt notified of antibiotic order and verbalizes understanding. Rhonda Bhatti Images from the original note were not included. Josesito Barajas PA-C Please tell her prescription for cipro sent to the pharmacy. Thanks [place] Urine culture is now available. Will route high priority to covering providers. Rhonda Bhatti Daughter, [place] calling and asking if the results were back? Notified of provider's response below and will await for the results. If her mom needs an antibiotic she would like the Rx sent to [facility] in [place]. Images from the original note were not included. Reed Artis PA-C You; Josesito Barajas PA-C 1 hour ago (12:07 PM) I will look , if not back then please make sure Josesito is notified if it is a UTI so he can sen antibiotics on Monday, I am out of the office Monday NIRMAL Salomon, [place], SAMIR Message text Patient calling for results of her urine test done yesterday. Made aware the results can take up to 72 hours. Patient reports she understood that she would be getting something to treat her before then. I did educate patient that cultures tell which medications do and not treat if a UTI is exsistant. Patient reports taking cranberry to help with the burning, denies bladder spasms. Reminder from previous message: Patient will be home until Monday and would like medication, if needed, sent to [facility]. Marguerite Pugh LPN documented in this encounter [facility] 01-14-2022 Miscellaneous Notes Called back and spoke w patient who is requesting an appt w Dr. Jha for [place]. Discussed w patient in detail our triage process, and recommended that she or PCP/ neurologist fax her medical records to us and we will review and triage appropriately.Fax number given to patient and she became upset and hung up the phone.Lisa Qureshi RN, BSN Sales And Leasing Consultant pager #[phone]. General Call Caller : Patient Contact Reason for Call : Patient is interested in coordinating a consultation with Dr. Jha after reading information about him in a magazine. Patient stated that she would like to see Dr. Jha to help treat her trigeminal neuralgia. I explained to her that I will have to notify Dr. Diallo's office first before transferring her to make appt. With Dr. Jha, due to both physicians having different specialities. Patient requesting return call ? Yes documented in this encounter [facility] 11-23-2015 History of Past i llness Narrative Problem Noted Date Resolved Date ADHF (acute decompensated heart failure) 016 08/01/2016 Overview: Acute on chronic, diastolic. Baseline weight reported to be 137. 08/21 TTE LVEF 57%, 2+ MR, 2-3+ TR - lasix 40mg PO BID - metoprolol 100mg PO BID - lisinopril 40mg PO daily - spironolactone 25mg PO daily Therapeutic drug monitoring 05/21/201207/04 Overview: QTc and arrhythmia monitoring for Dofetilide loading 05/23: Tikosyn reduced to 250mcg (4rth dose) see above Anticoagulated on warfarin 05/21/201203/31 Overview: - For Atrial fibrillation - INR supratherapeutic @ 5.5. --> 6 --> 4.6 - No overt sign of bleeding. Plan: - Hold coumadin today - Daily INR documented as of this encounter (statuses as of 01/14/2022) [facility] History of Past illness Narrative* Problem Noted Date Resolved Date ADHF (acute decompensated heart failure) 016 08/01/2016 Overview: Acute on chronic, diastolic. Baseline weight reported to be 137. 11/20 TTE LVEF 57%, 2+ MR, 2-3+ TR - lasix 40mg PO BID - metoprolol 100mg PO BID - lisinopril 40mg PO daily - spironolactone 25mg PO daily Therapeutic drug monitoring 05/21/201207/04 Overview: QTc and arrhythmia monitoring for Dofetilide loading 05/23: Tikosyn reduced to 250mcg (4rth dose) see above Anticoagulated on warfarin 05/21/201203/31 Overview: - For Atrial fibrillation - INR supratherapeutic @ 5.5. --> 6 --> 4.6 - No overt sign of bleeding. Plan: - Hold coumadin today - Daily INR documented as of this encounter (statuses as of 01/27/2022) [facility] History of Past illness Narrative* Problem Noted Date Resolved Date ADHF (acute decompensated heart failure) 016 08/01/2016 Overview: Acute on chronic, diastolic. Baseline weight reported to be 137. 11/20 TTE LVEF 57%, 2+ MR, 2-3+ TR - lasix 40mg PO BID - metoprolol 100mg PO BID - lisinopril 40mg PO daily - spironolactone 25mg PO daily Therapeutic drug monitoring 05/21/201207/04 Overview: QTc and arrhythmia monitoring for Dofetilide loading 05/23: Tikosyn reduced to 250mcg (4rth dose) see above Anticoagulated on warfarin 05/21/201203/31 Overview: - For Atrial fibrillation - INR supratherapeutic @ 5.5. --> 6 --> 4.6 - No overt sign of bleeding. Plan: - Hold coumadin today - Daily INR documented as of this encounter (statuses as of 01/27/2022) [facility] History of Past illness Narrative* Problem Noted Date Resolved Date ADHF (acute decompensated heart failure) 016 08/01/2016 Overview: Acute on chronic, diastolic. Baseline weight reported to be 137. 11/20 TTE LVEF 57%, 2+ MR, 2-3+ TR - lasix 40mg PO BID - metoprolol 100mg PO BID - lisinopril 40mg PO daily - spironolactone 25mg PO daily Therapeutic drug monitoring 05/21/201207/04 Overview: QTc and arrhythmia monitoring for Dofetilide loading 05/23: Tikosyn reduced to 250mcg (4rth dose) see above Anticoagulated on warfarin 05/21/201203/31 Overview: - For Atrial fibrillation - INR supratherapeutic @ 5.5. --> 6 --> 4.6 - No overt sign of bleeding. Plan: - Hold coumadin today - Daily INR documented as of this encounter (statuses as of 03/30/2022) [facility] History of Past illness Narrative* Problem Noted Date Resolved Date ADHF (acute decompensated heart failure) 016 08/01/2016 Overview: Acute on chronic, diastolic. Baseline weight reported to be 137. 11/20 TTE LVEF 57%, 2+ MR, 2-3+ TR - lasix 40mg PO BID - metoprolol 100mg PO BID - lisinopril 40mg PO daily - spironolactone 25mg PO daily Therapeutic drug monitoring 05/21/201207/04 Overview: QTc and arrhythmia monitoring for Dofetilide loading 05/23: Tikosyn reduced to 250mcg (4rth dose) see above Anticoagulated on warfarin 05/21/201203/31 Overview: - For Atrial fibrillation - INR supratherapeutic @ 5.5. --> 6 --> 4.6 - No overt sign of bleeding. Plan: - Hold coumadin today - Daily INR documented as of this encounter (statuses as of 04/01/2022) [facility] History of Past illness Narrative* Problem Noted Date Resolved Date ADHF (acute decompensated heart failure) 016 08/01/2016 Overview: Acute on chronic, diastolic. Baseline weight reported to be 137. 11/20 TTE LVEF 57%, 2+ MR, 2-3+ TR - lasix 40mg PO BID - metoprolol 100mg PO BID - lisinopril 40mg PO daily - spironolactone 25mg PO daily Therapeutic drug monitoring 05/21/201207/04 Overview: QTc and arrhythmia monitoring for Dofetilide loading 05/23: Tikosyn reduced to 250mcg (4rth dose) see above Anticoagulated on warfarin 05/21/201203/31 Overview: - For Atrial fibrillation - INR supratherapeutic @ 5.5. --> 6 --> 4.6 - No overt sign of bleeding. Plan: - Hold coumadin today - Daily INR documented as of this encounter (statuses as of 06/16/2022) [facility] History of Past illness Narrative* Problem Noted Date Resolved Date ADHF (acute decompensated heart failure) 016 08/01/2016 Overview: Acute on chronic, diastolic. Baseline weight reported to be 137. 11/20 TTE LVEF 57%, 2+ MR, 2-3+ TR - lasix 40mg PO BID - metoprolol 100mg PO BID - lisinopril 40mg PO daily - spironolactone 25mg PO daily Therapeutic drug monitoring 05/21/201207/04 Overview: QTc and arrhythmia monitoring for Dofetilide loading 05/23: Tikosyn reduced to 250mcg (4rth dose) see above Anticoagulated on warfarin 05/21/201203/31 Overview: - For Atrial fibrillation - INR supratherapeutic @ 5.5. --> 6 --> 4.6 - No overt sign of bleeding. Plan: - Hold coumadin today - Daily INR documented as of this encounter (statuses as of 06/20/2022) [facility] History of Past illness Narrative* Problem Noted Date Resolved Date ADHF (acute decompensated heart failure) 016 08/01/2016 Overview: Acute on chronic, diastolic. Baseline weight reported to be 137. 11/20 TTE LVEF 57%, 2+ MR, 2-3+ TR - lasix 40mg PO BID - metoprolol 100mg PO BID - lisinopril 40mg PO daily - spironolactone 25mg PO daily Therapeutic drug monitoring 05/21/201207/04 Overview: QTc and arrhythmia monitoring for Dofetilide loading 05/23: Tikosyn reduced to 250mcg (4rth dose) see above Anticoagulated on warfarin 05/21/201203/31 Overview: - For Atrial fibrillation - INR supratherapeutic @ 5.5. --> 6 --> 4.6 - No overt sign of bleeding. Plan: - Hold coumadin today - Daily INR documented as of this encounter (statuses as of 07/01/2022) [facility] History of Past illness Narrative* Problem Noted Date Resolved Date ADHF (acute decompensated heart failure) 016 08/01/2016 Overview: Acute on chronic, diastolic. Baseline weight reported to be 137. 11/20 TTE LVEF 57%, 2+ MR, 2-3+ TR - lasix 40mg PO BID - metoprolol 100mg PO BID - lisinopril 40mg PO daily - spironolactone 25mg PO daily Therapeutic drug monitoring 05/21/201207/04 Overview: QTc and arrhythmia monitoring for Dofetilide loading 05/23: Tikosyn reduced to 250mcg (4rth dose) see above Anticoagulated on warfarin 05/21/201203/31 Overview: - For Atrial fibrillation - INR supratherapeutic @ 5.5. --> 6 --> 4.6 - No overt sign of bleeding. Plan: - Hold coumadin today - Daily INR documented as of this encounter (statuses as of 03/29/2023) [facility] History of Past illness Narrative* Problem Noted Date Resolved Date ADHF (acute decompensated heart failure) 016 08/01/2016 Overview: Acute on chronic, diastolic. Baseline weight reported to be 137. 11/20 TTE LVEF 57%, 2+ MR, 2-3+ TR - lasix 40mg PO BID - metoprolol 100mg PO BID - lisinopril 40mg PO daily - spironolactone 25mg PO daily Therapeutic drug monitoring 05/21/201207/04 Overview: QTc and arrhythmia monitoring for Dofetilide loading 05/23: Tikosyn reduced to 250mcg (4rth dose) see above Anticoagulated on warfarin 05/21/201203/31 Overview: - For Atrial fibrillation - INR supratherapeutic @ 5.5. --> 6 --> 4.6 - No overt sign of bleeding. Plan: - Hold coumadin today - Daily INR documented as of this encounter (statuses as of 04/07/2023) [facility] History of Past illness Narrative* Problem Noted Date Diagnosed Date Resolved Date ADHF (acute decompensated heart failure) 11/23/2015 08/01/2016 Overview: Acute on chronic, diastolic. Baseline weight reported to be 137. 11/20 TTE LVEF 57%, 2+ MR, 2-3+ TR - lasix 40mg PO BID - metoprolol 100mg PO BID - lisinopril 40mg PO daily - spironolactone 25mg PO daily Therapeutic drug monitoring 05/21/2012 08/01/2016 Overview: QTc and arrhythmia monitoring for Dofetilide loading 05/23: Tikosyn reduced to 250mcg (4rth dose) see above Anticoagulated on warfarin 05/21/2012 0 03/31/2021 Overview: - For Atrial fibrillation - INR supratherapeutic @ 5.5. --> 6 --> 4.6 - No overt sign of bleeding. Plan: - Hold coumadin today - Daily INR documented as of this encounter (statuses as of 04/18/2023) [facility] History of Past illness Narrative* Problem Noted Date Diagnosed Date Resolved Date ADHF (acute decompensated heart failure) 11/23/2015 08/01/2016 Overview: Acute on chronic, diastolic. Baseline weight reported to be 137. 11/20 TTE LVEF 57%, 2+ MR, 2-3+ TR - lasix 40mg PO BID - metoprolol 100mg PO BID - lisinopril 40mg PO daily - spironolactone 25mg PO daily Therapeutic drug monitoring 05/21/2012 08/01/2016 Overview: QTc and arrhythmia monitoring for Dofetilide loading 05/23: Tikosyn reduced to 250mcg (4rth dose) see above Anticoagulated on warfarin 05/21/2012 0 03/31/2021 Overview: - For Atrial fibrillation - INR supratherapeutic @ 5.5. --> 6 --> 4.6 - No overt sign of bleeding. Plan: - Hold coumadin today - Daily INR documented as of this encounter (statuses as of 06/27/2023) [facility] History of Past illness Narrative* Problem Noted Date Diagnosed Date Resolved Date ADHF (acute decompensated heart failure) 11/23/2015 08/01/2016 Overview: Acute on chronic, diastolic. Baseline weight reported to be 137. 11/20 TTE LVEF 57%, 2+ MR, 2-3+ TR - lasix 40mg PO BID - metoprolol 100mg PO BID - lisinopril 40mg PO daily - spironolactone 25mg PO daily Therapeutic drug monitoring 05/21/2012 08/01/2016 Overview: QTc and arrhythmia monitoring for Dofetilide loading 05/23: Tikosyn reduced to 250mcg (4rth dose) see above Anticoagulated on warfarin 05/21/2012 0 03/31/2021 Overview: - For Atrial fibrillation - INR supratherapeutic @ 5.5. --> 6 --> 4.6 - No overt sign of bleeding. Plan: - Hold coumadin today - Daily INR documented as of this encounter (statuses as of 11/30/2023) [facility] History of Past illness Narrative* Problem Noted Date Diagnosed Date Resolved Date ADHF (acute decompensated heart failure) 11/23/2015 08/01/2016 Overview: Acute on chronic, diastolic. Baseline weight reported to be 137. 11/20 TTE LVEF 57%, 2+ MR, 2-3+ TR - lasix 40mg PO BID - metoprolol 100mg PO BID - lisinopril 40mg PO daily - spironolactone 25mg PO daily Therapeutic drug monitoring 05/21/2012 08/01/2016 Overview: QTc and arrhythmia monitoring for Dofetilide loading 05/23: Tikosyn reduced to 250mcg (4rth dose) see above Anticoagulated on warfarin 05/21/2012 0 03/31/2021 Overview: - For Atrial fibrillation - INR supratherapeutic @ 5.5. --> 6 --> 4.6 - No overt sign of bleeding. Plan: - Hold coumadin today - Daily INR documented as of this encounter (statuses as of 12/15/2023) [facility] History of Past illness Narrative* Problem Noted Date Diagnosed Date Resolved Date ADHF (acute decompensated heart failure) 11/23/2015 08/01/2016 Overview: Acute on chronic, diastolic. Baseline weight reported to be 137. 08/21 TTE LVEF 57%, 2+ MR, 2-3+ TR - lasix 40mg PO BID - metoprolol 100mg PO BID - lisinopril 40mg PO daily - spironolactone 25mg PO daily Therapeutic drug monitoring 05/21/2012 08/01/2016 Overview: QTc and arrhythmia monitoring for Dofetilide loading 05/23: Tikosyn reduced to 250mcg (4rth dose) see above Anticoagulated on warfarin 05/21/2012 0 03/31/2021 Overview: - For Atrial fibrillation - INR supratherapeutic @ 5.5. --> 6 --> 4.6 - No overt sign of bleeding. Plan: - Hold coumadin today - Daily INR documented as of this encounter (statuses as of 12/19/2023) [facility] note* Diagnosis Dysuria- Primary documented in this encounter [facility] note* Diagnosis Permanent atrial fibrillation (HCC)- Primary Atrial fibrillation documented in this encounter [facility] note* Diagnosis Trigeminal neuralgia documented in this encounter [facility] note* Diagnosis Trigeminal neuralgia- Primary documented in this encounter [facility] note* Diagnosis Dysuria- Primary documented in this encounter [facility] note* Diagnosis Recurrent UTI- Primary Urinary tract infection, site not specified documented in this encounter [facility] note* Diagnosis Acute cystitis without hematuria- Primary Acute cystitis documented in this encounter [facility] noteNo assessment information availableWMer[facility] Work Phone: Evaluation note* Diagnosis Essential hypertension- Primary Unspecified essential hypertension Other general symptoms and signs documented in this encounter [facility] note* Diagnosis Intracranial meningioma (HCC)- Primary Benign neoplasm of cerebral meninges documented in this encounter [facility] note* Diagnosis Permanent atrial fibrillation (HCC)- Primary Atrial fibrillation [facility]* Diagnosis Nonrheumatic mitral valve regurgitation- Primary Nonrheumatic tricuspid valve regurgitation Tricuspid valve disorders, specified as nonrheumatic Left atrial enlargement Cardiomegaly Permanent atrial fibrillation (HCC) Atrial fibrillation Right atrial enlargement Cardiomegaly Syncope and collapse documented in this encounter [facility] note* Diagnosis Permanent atrial fibrillation (HCC)- Primary Atrial fibrillation documented in this encounter [facility] for referral (narrative)* Outpatient Procedure (Routine) - Authorized Specialty Diagnoses / Procedures Referred By Contac t Referred To Contact [facility] Diagnoses Essential hypertension Other general symptoms and signs Procedures ECHO ECHO TTHRC R-T 2D W/WOM-MODE COMPL SPEC&COLR D Luis Barron MD [address] [place] [address] [address] Referral ID Status Reason Start Date Expiration Date Visits Requested Visits Authorized [id number] Authorized Auto-Generat ed Referral 12/15/2023 12/14/2024 1 1 * Outpatient Procedure (Routine) - Authorized Specialty Diagnoses / Procedures [facility] To Contact [facility] Diagnoses Essential hypertension Procedures ECG COMPLETE ECG ROUTINE ECG W/LEAST 12 LDS W/I&R Luis Barron MD [address] [place] [address] [address] Referral ID Status Reason Start Date Expiration Date Visits Requested Visits Authorized [id number] Authorized Auto-Generat ed Referral 12/15/2023 12/14/2024 1 1 [facility] for referral (narrative)* Outpatient Procedure (Routine) - Authorized Specialty Diagnoses / Procedures Referred By Contac t Referred To Contact [facility] Diagnoses Permanent atrial fibrillation (HCC) Procedures ECG COMPLETE ECG ROUTINE ECG W/LEAST 12 LDS W/I&R Low White MD [address] [place] [address] [place] [address] [address] Referral ID Status Reason Start Date Expiration Date Visits Requested Visits Authorized [id number] Authorized Auto-Generat ed Referral 03/25/2024 03/25/2025 1 1 [facility] for referral (narrative)* Outpatient Procedure (Routine) - New Request Specialty Diagnoses / Procedures Referred By Contac t Referred To Contact [facility] Diagnoses Nonrheumatic mitral valve regurgitation Nonrheumatic tricuspid valve regurgitation Procedures ECHO ECHO TTHRC R-T 2D W/WOM-MODE COMPL SPEC&[place] [address] [place] [id number] [address] Referral ID Status Reason Start Date Expiration Date Visits Requested Visits Authorized [id number] New Request Auto-Generat ed Referral 04/25/2024 04/25/2025 1 1 * Outpatient Procedure (Routine) - New Request Specialty Diagnoses / Procedures Referred By Contac t Referred To Contact [facility] Diagnoses Nonrheumatic mitral valve regurgitation Nonrheumatic tricuspid valve regurgitation Procedures ECG COMPLETE ECG ROUTINE ECG W/LEAST 12 LDS W/I&R Luis Barron MD [address] [place] [address] [address] Referral ID Status Reason Start Date Expiration Date Visits Requested Visits Authorized [id number] New Request Auto-Generat ed Referral 04/25/2024 04/25/2025 1 1 * Transition of Care (Routine) - Ref Not Required Specialty Diagnoses / Procedures Referred By Contac t Referred To Contact [facility] Procedures CARDIOVASCULAR MEDICINE OP FOLLOW [place] [address] [place] [address] 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 Advance Directive(s) 06/15/2016 7:56 PM Advance Directive Response Recorded Date/ Time Living Will Yes October 27 4:43pm Power of Divisional Storekeeper Yes October 27, 2015 4:43pm Chief Complaint and Reason for Visit Chief Complaint PHARYNGITIS Reason for Referral Specialty Diagnoses / Procedures Referred By Dank barrientos Referred To Contact [facility] Diagnoses Intracranial meningioma (HCC) Procedures MRI BRAIN WO/W IVCON MRI BRAIN BRAIN STEM W/O W/CONTRAST MATERIAL Elvira Cline, ADVANCED PRACTICE REGISTERED NURSE.ELECTRIC TRUCK OPERATOR [facility] [address] [place] [address] Mr Imaging [facility]95 Referral ID Status Reason Start Date Expiration Date Visits Requested Visits Authorized [id number] Pending Review Auto-Generat ed Referral 12/19/2023 01/17/2025 1 1 Specialty Diagnoses / Procedures Referred By Dank barrientos [facility] Procedures CARDIOVASCULAR MEDICINE OP FOLLOW UP APPT ORDER Josesito Lora MD [facility] [place] [address] [place] [address] Referral ID Status Reason Start Date Expiration Date Visits Requested Visits Authorized [id number] Authorized PCP Requested Referral 10/11/2024 10/11/2025 1 1 Additional Source Comments INFORMATION SOURCE (unrecogn ized section and content) DATE CREATED AUTHOR 03/22/2018 [facility] DATE CREATED AUTHOR AUTHOR'S ORGANIZ ATION 07/10/2018 [facility] DATE CREATED AUTHOR AUTHOR'S ORGANIZ ATION 07/26/2019 [facility] DATE CREATED AUTHOR AUTHOR'S ORGANIZ ATION 12/16/2023 [facility] DATE CREATED AUTHOR AUTHOR'S ORGANIZ ATION 2024 [facility] DATE CREATED AUTHOR AUTHOR'S ORGANIZ ATION 03/12/2025 [facility] Source Comments (unrecognize d section and content) In the event this informatio n is protected by the Federal Confidentiality of Alcohol and Drug Abuse Patient Records regulations: The Federal rules restrict any use of the information to criminally investigate or prosecute any alcohol or drug abuse patient.[facility] the event this information is protected by the Federal Confidentiality of Alcohol and Drug Abuse Patient Records regulations: The Federal rules restrict any use of the information to criminally investigate or prosecute any alcohol or drug abuse patient.[facility] the event this information is protected by the Federal Confidentiality of Alcohol and Drug Abuse Patient Records regulations: The Federal rules restrict any use of the information to criminally investigate or prosecute any alcohol or drug abuse patient.[facility] the event this information is protected by the Federal Confidentiality of Alcohol and Drug Abuse Patient Records regulations: The Federal rules restrict any use of the information to criminally investigate or prosecute any alcohol or drug abuse patient.[facility] Center[facility] the event this information is protected by the Federal Confidentiality of Alcohol and Drug Abuse Patient Records regulations: The Federal rules restrict any use of the information to criminally investigate or prosecute any alcohol or drug abuse patient.[facility] Center[facility] the event this information is protected by the Federal Confidentiality of Alcohol and Drug Abuse Patient Records regulations: The Federal rules restrict any use of the information to criminally investigate or prosecute any alcohol or drug abuse patient.[facility] Center[facility] the event this information is protected by the Federal Confidentiality of Alcohol and Drug Abuse Patient Records regulations: The Federal rules restrict any use of the information to criminally investigate or prosecute any alcohol or drug abuse patient.[facility] Center[facility] the event this information is protected by the Federal Confidentiality of Alcohol and Drug Abuse Patient Records regulations: The Federal rules restrict any use of the information to criminally investigate or prosecute any alcohol or drug abuse patient.[facility] Center[facility] the event this information is protected by the Federal Confidentiality of Alcohol and Drug Abuse Patient Records regulations: The Federal rules restrict any use of the information to criminally investigate or prosecute any alcohol or drug abuse patient.[facility] Center[facility] the event this information is protected by the Federal Confidentiality of Alcohol and Drug Abuse Patient Records regulations: The Federal rules restrict any use of the information to criminally investigate or prosecute any alcohol or drug abuse patient.[facility] Center[facility] the event this information is protected by the Federal Confidentiality of Alcohol and Drug Abuse Patient Records regulations: The Federal rules restrict any use of the information to criminally investigate or prosecute any alcohol or drug abuse patient.[facility] Center[facility] the event this information is protected by the Federal Confidentiality of Alcohol and Drug Abuse Patient Records regulations: The Federal rules restrict any use of the information to criminally investigate or prosecute any alcohol or drug abuse patient.[facility] Center[facility] the event this information is protected by the Federal Confidentiality of Alcohol and Drug Abuse Patient Records regulations: The Federal rules restrict any use of the information to criminally investigate or prosecute any alcohol or drug abuse patient.[facility] Center[facility] the event this information is protected by the Federal Confidentiality of Alcohol and Drug Abuse Patient Records regulations: The Federal rules restrict any use of the information to criminally investigate or prosecute any alcohol or drug abuse patient.[facility] Center[facility] the event this information is protected by the Federal Confidentiality of Alcohol and Drug Abuse Patient Records regulations: The Federal rules restrict any use of the information to criminally investigate or prosecute any alcohol or drug abuse patient.[facility] Center[facility] the event this information is protected by the Federal Confidentiality of Alcohol and Drug Abuse Patient Records regulations: The Federal rules restrict any use of the information to criminally investigate or prosecute any alcohol or drug abuse patient.[facility] Center[facility] the event this information is protected by the Federal Confidentiality of Alcohol and Drug Abuse Patient Records regulations: The Federal rules restrict any use of the information to criminally investigate or prosecute any alcohol or drug abuse patient.[facility] Center[facility] the event this information is protected by the Federal Confidentiality of Alcohol and Drug Abuse Patient Records regulations: The Federal rules restrict any use of the information to criminally investigate or prosecute any alcohol or drug abuse patient.[facility] Center[facility] the event this information is protected by the Federal Confidentiality of Alcohol and Drug Abuse Patient Records regulations: The Federal rules restrict any use of the information to criminally investigate or prosecute any alcohol or drug abuse patient.[facility] Reason for Visit (unrecogniz ed section and content) Reason Comments Appointment Reason Comments Results Reason Comments Refill Request Reason Comments UTI symptoms Orders Reason Comments Medication Refill Reason Comments Orders Reason Comments recurrent uti Follow Up Reason Comments Results Patient Update Reason Comments Results Orders Reason Comments Triage Records in [facility] Dr. Diallo pt, last seen 2019. Reason Comments Patient Question Care Teams (unrecognized sec tion and content) [employer] Relationship Specialty Start Date End Date Reza Barros MD [address] [place], [place] [phone] PCP - General Internal Medicine 04/26/19 Ngoc Melvin S [address] [address] Physician Cardiology 01/03/19 Reza Barros MD [address] [place], [place] [phone] Referring Internal Medicine 03/19/19 No, Referral Referring 04/26/19 Luis Barron MD [address] [place] [address] Primary Staff Physician Cardiology 07/29/21 [employer] Relationship Specialty Start Date End Date Reza Barros MD [address] [place], [place] [phone] PCP - General Internal Medicine 04/26/19 Ngoc, [place] S [address] [facility] [address] [place] [address] Physician Cardiology 01/03/19 Reza Barros MD [address] [place], [place] [phone] Referring Internal Medicine 03/19/19 No, Referral Referring 04/26/19 Luis Barron MD [address] [place] [address] Primary Staff Physician Cardiology 07/29/21 [employer] Relationship Specialty Start Date End Date Reza Barros MD [address] [place], [place] [phone] PCP - General Internal Medicine 04/26/19 Ngoc, [place] S [address] [address] Physician Cardiology 01/03/19 Reza Barros MD [address] [place], [place] [phone] Referring Internal Medicine 03/19/19 No, Referral Referring 04/26/19 Luis Barron MD [address] [place] [address] Primary Staff Physician Cardiology 07/29/21 [employer] Relationship Specialty Start Date End Date Reza Barros MD [address] [place], [place] [phone] PCP - General Internal Medicine 04/26/19 Ngoc, Melvin S [address] [address] Physician Cardiology 01/03/19 Reza Barros MD [address] [place] [address] Referring Internal Medicine 03/19/19 No, Referral Referring 04/26/19 Luis Barron MD [address] [place] [address] Primary Staff Physician Cardiology 07/29/21 [employer] Relationship Specialty Start Date End Date Reza Barros MD [address] [place], [place] [address] [phone] PCP - General Internal Medicine 04/26/19 Ngoc, Melvin S [address] [address] Physician Cardiology 01/03/19 Reza Barros MD [address] [place] [address] Referring Internal Medicine 03/19/19 No, Referral Referring 04/26/19 Luis Barron MD [address] [place] [address] Primary Staff Physician Cardiology 07/29/21 [employer] Relationship Specialty Start Date End Date Reza Barros MD [address] [place] [address] PCP - General Internal Medicine 04/26/19 Ngoc, [place] S [address] [address] Physician Cardiology 01/03/19 Reza Barros MD [address] [place], [place] [phone] Referring Internal Medicine 03/19/19 No, Referral Referring 04/26/19 Luis Barron MD [address] [place] [address] Primary Staff Physician Cardiology 07/29/21 [employer] Relationship Specialty Start Date End Date Reza Barros MD [address] [place], [place] [phone] PCP - General Internal Medicine 04/26/19 Melvin Grossman [address] [address] Physician Cardiology 01/03/19 Reza Barros MD [address] [place], [place] [phone] Referring Internal Medicine 03/19/19 No, Referral Referring 04/26/19 Luis Barron MD [address] [place] [address] Primary Staff Physician Cardiology 07/29/21 [employer] Relationship Specialty Start Date End Date Reza Barros MD [address] [place], [place] [phone] PCP - General Internal Medicine 04/26/19 Melvin Grossman [address] [address] Physician Cardiology 01/03/19 Reza Barros MD [address] [place], [place] [id number] Referring Internal Medicine 03/19/19 No, Referral Referring 04/26/19 Luis Barron MD [address] [place] [address] Primary Staff Physician Cardiology 07/29/21 [employer] Relationship Specialty Start Date End Date Reza Barros MD [address] [place], [place] [id number] PCP - General Internal Medicine 04/26/19 Melvin Grossman MD [address] [address] Physician Cardiology 01/03/19 Reza Barros MD [address] [place], [place] [id number] Referring Internal Medicine 03/19/19 No, Referral Referring 04/26/19 Luis Barron MD [address] [place] [address] Primary Staff Physician Cardiology 07/29/21 Team Status: Active Member Role Status Dates Dr. Reno Bains MD Family Provider Active Dr. Reno Bains MD Primary Care Provider Active Team Status: Inactive Member Role Status Dates Dr. Reno Bains MD Primary Care Provider Active Dr. Cedrick Espana MD Attending Provider, Referring P steve Active [employer] Relationship Specialty Start Date End Date Reza Barros MD [address] [place], [place] [id number] PCP - General Internal Medicine 04/26/19 Melvin Grossman MD [address] [id number] Physician Cardiology 01/03/19 Reza Barros MD [address] [place], [place] [id number] Referring Internal Medicine 03/19/19 No, Referral Referring 04/26/19 Luis Barron MD [address] [place], [place] [id number] Primary Staff Physician Cardiology 07/29/21 [employer] Relationship Specialty Start Date End Date Reza Barros MD [address] [place], [place] [id number] PCP - General Internal Medicine 04/26/19 Melvin Grossman MD [address] [address] Physician Cardiology 01/03/19 Reza Barros MD [address] [place], [place] [id number] Referring Internal Medicine 03/19/19 No, Referral Referring 04/26/19 Luis Barron MD [address] [place] [address] Primary Staff Physician Cardiology 07/29/21 [employer] Relationship Specialty Start Date End Date Reza Barros MD [address] [place], [place] [id number] PCP - General Internal Medicine 04/26/19 Melvin Grossman MD [address] [id number] Physician Cardiology 01/03/19 Reza Barros MD [address] [place], [place] [id number] Referring Internal Medicine 03/19/19 No, Referral Referring 04/26/19 Luis Barron MD [address] [place] [address] Primary Staff Physician Cardiology 07/29/21 [employer] Relationship Specialty Start Date End Date Reza Barros MD [address] [place], [place] [id number] PCP - General Internal Medicine 04/26/19 Melvin Grossman MD [address] [address] Physician Cardiology 01/03/19 Reza Barros MD [address] [place], [place] [address] Referring Internal Medicine 03/19/19 No, Referral Referring 04/26/19 Luis Barron MD [address] [place], [place] [id number] Primary Staff Physician Cardiology 07/29/21 [employer] Relationship Specialty Start Date End Date Reza Barros MD [address] [place], [place] [id number] PCP - General Internal Medicine 04/26/19 Melvin Grossman MD [address] [address] Physician Cardiology 01/03/19 Reza Barros MD [address] [place], [place] [address] Referring Internal Medicine 03/19/19 No, Referral Referring 04/26/19 Luis Barron MD [address] [place] [address] Primary Staff Physician Cardiology 07/29/21 [employer] Relationship Specialty Start Date End Date Reza Barros MD [address] [place], [place] [id number] PCP - General Internal Medicine 04/26/19 Melvin Grossman MD [address] [address] Physician Cardiology 01/03/19 Reza Barros MD [address] [place], [place] [id number] Referring Internal Medicine 03/19/19 No, Referral Referring 04/26/19 Luis Barron MD [address] [place] [address] Primary Staff Physician Cardiology 07/29/21 Goals (unrecognized section and content) Goals may be documented in a n alternate section FOR RECORDS PERTAINING TO PATIENTS WHO ARE OR HAVE BEEN ENROLLED IN A CHEMICAL DEPENDENCY/SUBSTANCEABUSE PROGRAM, SOME INFORMATION MAY BE OMITTED. This clinical summary was aggregated from multiple sources. Caution should be exercised in using it in the provision of clinical care. This summary normalizes information from multiple sources, and as a consequence, information in this document may materially change the coding, format and clinical context of patient data. In addition, data may be omitted in some cases. CLINICAL DECISIONS SHOULD BE BASED ON THE PRIMARY CLINICAL RECORDS. [employer] provides no warranty or guarantee of the accuracy or completeness of information in this document.
[2025-03-20 13:00] VITALS: BP 128/74; PULSE 82; RESP 14; TEMP 36.8; O2SAT 97
[2025-03-20] MEDS: Doxycycline 100 MG CAPSULE PO (13:09)
== END 2025-03-20 13:25 | disposition home or self-care (01) ==
PROVIDERS: Physician Assistant; Emergency Provider Emergency Medicine; PCP Internal Medicine; Referring Provider Emergency Medicine; Visit Provider Emergency Medicine
DX: J06.9 Acute upper respiratory infection, unspecified (principal); I48.0 Paroxysmal atrial fibrillation; N39.0 Urinary tract infection, site not specified; R53.1 Weakness; I10 Essential (primary) hypertension; G50.0 Trigeminal neuralgia; Z79.01 Long term (current) use of anticoagulants; Z79.899 Other long term (current) drug therapy
CPT/HCPCS: 71046; 80048; 81001; 85025; 87086; 87088; 93005; 96360; 99283